=== PATIENT | male | born 1935 | race Hispanic/Latino ===

== ENCOUNTER 2016-10-20 01:54 | Day surgery (SDC) | payer MEDICARE, MEDICAID ==
[~2016-10-20] VITALS: Ht 170.2 cm; Wt 66.0 kg
[~2016-10-20 01:54] MED LIST: AMLO5TAB2 PO; CINA30TA PO; CLOP75TA28 PO; ERGO500050 PO; FAMO20TA4 PO; FURO80TA83 PO; GLPZ5T PO; INSU100C8 SUBQ; INSU100I13 SUBQ; LEVO200T6 PO; LEVO50TA6 PO; METO-274 PO; MTC5T PO; SEVE800T7 PO; VALS320T PO
[2016-10-20 10:10] VITALS: BP 157/49; PULSE 98; RESP 18; O2SAT 99
[2016-10-20 10:11] LABS: BASOPHILS % (AUTO) 1.3 % (0-3); EOSINOPHILS % (AUTO) 6.1 % (0-5); MONOCYTES % (AUTO) 14.7 % (4-12); Mean Corpuscular Hemoglobin 30.4 pg (27.0-35.0); Mean Corpuscular Volume 91.8 fL (81-100); NEUTROPHILS % (AUTO) 48.7 % (40-74); Platelet Count 247 bil/L (150-400)
[2016-10-20] MEDS ORDERED: 0.9% Sodium Chloride 500 ML ONE (10:23)
[2016-10-20] MEDS ORDERED: CeFAZolin 1 Gm/50 mL D5W Duplex Bag IV ONE (10:23)
[2016-10-20] MEDS ORDERED: 0.9% Sodium Chloride 1,000 ML ONE (12:09)
[2016-10-20] MEDS ORDERED: Heparin 1,000 Unit/mL 10 mL Inj ONE ×2 (12:10→12:36)
[2016-10-20] MEDS ORDERED: fentaNYL-PF 50 mCg/mL 2 mL Inj ONE (12:25)
[2016-10-20 13:00] VITALS: BP 185/56; PULSE 68; RESP 18
[2016-10-20 13:15] VITALS: BP 185/56; PULSE 71; RESP 18
[2016-10-20 13:45] VITALS: BP 185/56; PULSE 71; RESP 18
[2016-10-20 14:00] VITALS: BP 186/60; PULSE 98; RESP 18
--- NOTE | 2016-10-20 15:44 | DRSVH ---
PROCEDURE: AV FISTULA INDICATIONS: ESRD COMPARISON: None. Technique: 1. Conscious sedation for 60 minutes. 2. Antegrade access of the venous outflow of the right upper extremity fistula. 3. Balloon angioplasty of a focal high-grade stenosis in the central portion of the venous outflow. 4. Balloon angioplasty of a moderate grade stenosis within the midportion of the venous outflow. 5. Sheath removal hemostasis. The indications, alternatives, benefits, risks, and complications of the procedure were explained to the patient.. Informed written consent was obtained and placed in the chart. The patient was marielos t to the angiography suite, and conscious sedation was administered intravenously by jail staff, while continuous cardiorespiratory monitoring was performed. Maximum sterile barrier technique was employed per standard protocol, including hand hygiene, cap, ma sk, sterile gown and gloves, and 2% chlorhexidine. One percent lidocaine was used to anesthetize the skin over the area of interest. Using a micropuncture kit the right upper extremity venous outflow wa s accessed in antegrade fashion. Fistulogram was performed in substance to the level of the SVC throu gh the micropuncture sheath. An 035 wire and a Kumpe catheter were used a high-grade stenosis within the central portion of the cephalic vein. The micropuncture sheath was exchanged for a short 6 Bengali sheath. Balloon angioplasty was performed with a 6 mm x 40 mm high-pressure balloon at a focal high- grade stenosis within the central portion of the cephalic vein. Completion fistulogram was performed. Next, angioplasty was performed with the 6 mm x 40 mm high-pressure balloon within a moderate grade s tenosis in the midportion of the venous outflow. Completion fistulogram was performed. Reflux fistulo gram of the arteriovenous anastomosis was performed. The sheath was removed, and hemostasis was achie kai. FINDINGS: Initial fistulogram demonstrates a focal high-grade stenosis within the central portion of the cephalic vein at the confluence of the cephalic and axillary veins. Completion fistulogram demon strates moderate resolution of the stenosis with some mild residual stenosis remaining. Initial fistu logram demonstrates a moderate grade stenosis within the midportion of the venous outflow. Completion fistulogram demonstrates resolution of the stenosis. IMPRESSION: 1. Status post balloon angioplasty of a focal high-grade stenosis within the central portion of the v enous outflow. There is partial resolution of the stenosis with some persistent stenosis remaining. I f the patient continues to have high venous pressures are prolonged bleeding, repeat angioplasty with a larger balloon could be considered. 2. Resolution of a focal moderate grade stenosis within the midportion of the venous outflow after ba lloon angioplasty. Dictated by: Madonna Plaza M.D. on 10/20/2016 at 15:39 Approved by: Madonna Plaza M.D. on 10/20/2016 at 15:43
[2016-12-23] MEDS ORDERED: CHOL500050 PO (11:34)
== END 2016-10-20 23:59 | disposition home or self-care (01) ==
LOC: SOUO 01:54
PROVIDERS: ATTEND Radiology Vascular & Interventional Radiology
DX: I87.1 Compression of vein (principal); T82.858A Stenosis of other vascular prosthetic devices, implants and grafts, initial encounter; Y83.2 Surgical operation with anastomosis, bypass or graft as the cause of abnormal reaction of the patient, or of later complication, without mention of misadventure at the time of the procedure; Z99.2 Dependence on renal dialysis; D63.1 Anemia in chronic kidney disease; E03.9 Hypothyroidism, unspecified; E11.22 Type 2 diabetes mellitus with diabetic chronic kidney disease; F03.90 Unspecified dementia, unspecified severity, without behavioral disturbance, psychotic disturbance, mood disturbance, and anxiety
CPT/HCPCS: 36415; 36902; 80048; 85025; 85610; 99152; 99153; C1725; C1769; C1894; J1644; J2250; J3010; J7030; Q9967

== ENCOUNTER 2016-10-29 19:03 | Emergency (ER) | payer MEDICARE, MEDICAID ==
[2016-10-29 19:10] VITALS: BP 116/43; PULSE 77; RESP 19; O2SAT 100
--- NOTE | 2016-10-29 19:27 | ED.REPORT ---
HPI-General Illness Date of Service Oct 29, 2016 ED Provider: Dione Heart MD An 81 year old male with a history of ESRD, type II diabetes, PAD, TIA, fistula repairs, and mild dementia presents to the ED via EMS complaining of altered mental status that began 4 days ago. Patient's daughter began to express concern earlier this evening after recording a BS of 336 and reports that he was diaphoretic during the episode. The diaphoresis has since resolved. He recently had a fistula repaired on 10/20 and daughter reports that the patient often hallucinates after the surgery. Patient also recently had a bladder infection and completed 10 days of Keflex (finished 10/16). Associated symptoms included bladder incontinence and decreased appetite. Patient is dialyzed M/W/ F. Daughter denies fever, cough, headaches, chest pain, SOB or abdominal pain. Nursing Notes Stated Complaint: DECREASED LOC Chief Complaint: Neuro Symptoms/ Deficits Nursing Notes Reviewed: Yes Allergies: Coded Allergies: sodium phosphate (Verified Allergy, Unknown, 05/14/16) PT has ESRD, he cannot have phosphate. Scheduled Amlodipine (Amlodipine) 5 Mg Tablet 10 MG PO QAM Cinacalcet (Sensipar) 30 Mg Tablet 60 MG PO QAM Clopidogrel (Clopidogrel) 75 Mg Tablet 75 MG PO DAILYWL Ergocalciferol (Vitamin D2) (Drisdol) 50,000 Unit Capsule 50,000 UNIT PO Q7D Famotidine (Famotidine) 20 Mg Tablet 20 MG PO QAM Furosemide (Lasix) 80 Mg Tablet 80 MG PO BIDF A.M. and NOON; Hold on dialysis days - MWF Glipizide (Glipizide) 5 Mg Tablet 2.5 MG PO DAILY Insulin Glargine (Lantus U100 Solostar Insulin Pen) 100 Unit/1 Ml Inj 10 UNIT SUBQ HS Levothyroxine (Levothyroxine) 200 Mcg Tablet 200 MCG PO HS 200mcg+50mcg to equal 250mcg total Levothyroxine (Levothyroxine) 50 Mcg Tablet 50 MCG PO HS pt takes 250mcg total, 50mcg+200mcg tab Metoclopramide (Metoclopramide) 5 Mg Tab 5 MG PO QID Metoprolol Succinate ER (Metoprolol Succinate ER) 100 Mg Tab.er.24h 100 MG PO MORNING Sevelamer Carbonate (Renvela) 800 Mg Tablet 2,400 MG PO TIDWM Valsartan (Diovan) 320 Mg Tablet 320 MG PO HS Miscellaneous Medications Insulin Aspart (NovoLOG U100 Insulin Vial) 100 U/Ml U 1 UNIT SUBQ General Time Seen by MD: 19:20 Chief Complaint Altered mental status Hx Obtained From: Daughter Arrived By: Ambulance Sudden in Onset?: No Onset Occurred: 1 - 4 hours ago Symptom Duration: Since onset Associated with: Denies: Abdominal pain, Chest pain, Headache, Shortness of breath Pertinent Negative: Pt denies other symptoms Recent Healthcare: No recent hospitalization, Recent doctor visit Past Medical History Past Medical History Diabetes, on insulin Peripheral artery disease Chronic renal failure on dialysis History of TIA Hypothyroid Past Surgical History AV fistula Smoking History Former Smoker Social History Other Social History: Good social support, Local resident Ambulatory Status Wheelchair Review of Systems Full Review of Systems Constitutional: Denies: Chills, Fever Respiratory: Denies: Non-productive cough, Shortness of breath Cardiovascular: Denies: Chest pain GI: Denies: Abdominal pain, Nausea, Vomiting Male: Reports Incontinence Skin: Reports Diaphoresis Neurologic: Denies: Change LOC (Decreased LOC ) Psychiatric: Reports: Change mental status Complete sys rev & neg: except as marked. Physical Exam Vital Signs Vital Signs Date Time Temp Pulse Resp B/P Pulse Ox O2 Delivery O2 Flow Rate FiO2 10/29/16 21:49 36.7 78 20 180/56 98 Room Air 10/29/16 19:39 36.7 75 18 131/45 97 Room Air 10/29/16 19:10 35.8 77 19 116/43 100 Room Air Initial VS: Reviewed Neck: Supple, Non-tender, Full range of motion General/Constitutional: Awake, Alert Head / Eyes: Atraumatic, Normocephalic Pupils: Positive: Pinpoint Respiratory / Chest: Atraumatic, Breath sounds NL, Breath sounds = bilat Cardiovascular: Heart rate NL, Regular rhythm, Heart sounds NL, No murmurs Abdomen: Atraumatic, Soft Upper Extremities Upper Extremity / MS: Atraumatic, Neurologic intact UPPER EXTREMITITES: Fistula right upper extremity Lower Extremity / Pelvis / MS: Atraumatic, Inspection NL, Neurologic intact, Vascular intact LOWER EXTREMITIES: No lower extremity edema Interpretation & Diagnostics Lab Results Interpretation Result Diagram: 10/29/16192910/29/161929 Test 10/29/16:30 10/29/16 20:49 White Blood Count 9.6th/mm3 (3.8-10.1) Red Blood Count 3.37mil/mm3 (4.40-5.80) Hemoglobin 10.2g/dL (13.8-17.2) Hematocrit 31.2% (41.0-50.0) Mean Corpuscular Volume 92.6fL (81-100) Mean Corpuscular Hemoglobin 30.3pg (27.0-35.0) Mean Corpuscular Hemoglobin Concent 32.7% (32.0-37.0) Red Cell Distribution Width 12.8% (12.3-15.4) Platelet Count 303bil/L (150-400) Neutrophils (%) (Auto) 62.8% (40-74) Lymphocytes (%) (Auto) 21.1% (14-46) Monocytes (%) (Auto) 11.9% (4-12) Eosinophils (%) (Auto) 3.0% (0-5) Basophils (%) (Auto) 0.8% (0-3) Hold Purple Top Tube Received (Received) Prothrombin Time 10.6sec (8.1-12.5) Prothromb Time International Ratio 0.99ratio Hold Blue Top Tube Received (Received) Sodium Level 134mEq/L (134-144) Potassium Level 4.0mEq/L (3.5-5.2) Chloride Level 91mEq/L (97-108) Carbon Dioxide Level 23mmol/L (18-29) Blood Urea Nitrogen 59mg/dL (8-27) Creatinine 6.40mg/dL (0.76-1.27) Estimat Glomerular Filtration Rate 9mL/min (>59) Glucose Level 212mg/dL (60-99) Lactic Acid Level 1.9mmol/L (0.4-2.0) Calcium Level 7.8mg/dL (8.5-10.1) Magnesium Level 2.1mg/dL (1.6-2.6) Total Bilirubin 0.2mg/dL (0.0-1.2) Aspartate Amino Transf (AST/SGOT) 15U/L (0-50) Alanine Aminotransferase (ALT/SGPT) 9U/L (0-44) Alkaline Phosphatase 176U/L (25-160) Troponin T 0.053ug/L (0.0-0.011) Total Protein 6.8g/dL (6.4-8.4) Albumin 3.6g/dL (3.4-5.0) Hold Red Top Tube Received (Received) Hold [place] Top Tube Received (Received) Hold Larios Top Tube Received (Received) Urine Color Yellow (YELLOW) Urine Appearance Hazy (CLEAR,HAZY) Urine pH 7.0 (5.0-8.0) Urine Specific Tyler 1.015 (1.003-1.035) Urine Protein 100mg/dL (NEG,TRACE) Urine Glucose (UA) 500mg/dL (NEGATIVE) Urine Ketones Negativemg/dL (NEGATIVE) Urine Occult Blood Large (NEGATIVE) Urine Nitrite Negative (NEGATIVE) Urine Bilirubin Negative (NEGATIVE) Urine Urobilinogen Normalmg/dL (NORMAL) Urine Leukocyte Esterase Negative (NEGATIVE) Urine RBC >50/hpf (0-2) Urine WBC 0-5/hpf (0-5) Urine Epithelial Cells Few/hpf (NONE-MOD) Urine Crystals None seen (NONE SEEN) Urine Bacteria Few/hpf (NONE-FEW) Urine Hyaline Casts None/lpf (NONE) Urine Granular Casts None seen (NONE SEEN) Urine Waxy Casts None seen (NONE SEEN) Urine Red Blood Cell Casts None seen (NONE SEEN) Urine White Blood Cell Casts None seen (NONE SEEN) Urine Mucus None seen (None Seen) Urine Trichomonas None seen (NONE SEEN) Urine Yeast None (NONE SEEN) Urinalysis Comment Urine Culture Reflexed Not indicated Lab Results Interpretation: Anemia is chronic, elevated troponin is at his baseline Urinalysis shows no indication of infection and will be sent for culture ECG Interpretation ECG Interpretation: Rate 65 Sinus rhythm old inferior infarct Lateral T wave depression - similar to 02/09/16 Time: 20:24 Interpreted by: ED physician X-Ray Chest Interpretation Chest Xray Interpretation: IMPRESSION: No acute cardiopulmonary disease process. Dictated by: Tiki Carr MD, PhD on 10/29/2016 at 20:39 Interpretation / Wet Read by: Interpret - Radiologist Re-Eval/Medical Decision Med Decision/Clinical Course Presents with altered mental status. His daughter, and primary caregiver, notes that he typically has a long time after any procedures and he recently had a fistulogram. He apparently has been exquisitely sensitive to his insulin lately and his daughter has been using less than recommended to avoid hypoglycemia At this point there is no evidence of acute or life-threatening issue. His hypoglycemia has resolved he is awake alert eating. Return him to home and requests that he continue his usual dialysis schedule a follow-up with primary care as needed Patient Status: Condition improved Re-Evaluation/Progress Note: Patient is rechecked. He reports that he is feeling much better. Daughter is informed of his lab results and diagnosis. All of the patient's questions are adressed. He understands and agrees with the treatment plan to discharge. Counseled Regarding: Diagnosis, Lab results, Need for follow-up, When/why to return to ED Discharge & Departure Primary Impression: Hypoglycemia Ruled Out: Sepsis, Myocardial infarction, TIA (transient ischemic attack) Disposition: Home Discharge Condition All VS Reviewed: Yes Condition: Stable Patient Instructions: Diabetic Hypoglycemia (ED) Additional Instructions: Thank you for trusting us with your care this afternoon. Your emergency department evaluation results are reassuring that there is no dangerous cause for concern at this time and your symptoms are likely due to hypoglycemia. Because you have been having problems with eating less and seem to be more sensitve to your insulin, it may make sense to use your insulin only AFTER eating, so you don't end up giving too much. I would much rather see your sugar in the 200 range than the 40 range. Schedule a follow up with Dr Clark if you are not improving. Keep your usual dialysis apt. Please return to the emergency department immediately for any new or worsening conditions including any difficulty breathing, weaknesses, numbness/tingling, fevers, or chest pain. Referrals: Jose L Clark MD (PCP) Scribe Attestation Portions of this note were transcribed by Lauren Reed. I, Dr. Heart personally performed the history, physical exam and medical decision-making; I reviewed and confirmed the accuracy of the information in the transcribed note. Signed by: Mini Bautista, 10/29/16 2200. copies to: Jose L Clark MD; Mirna Tolliver MD, Shawna L MD Oct 29, 2016 19:27 LAUREN REED Oct 29, 2016 19:29
[2016-10-29 19:37] LABS: BASOPHILS % (AUTO) 0.8 % (0-3); MONOCYTES % (AUTO) 11.9 % (4-12); Mean Corpuscular Hemoglobin 30.3 pg (27.0-35.0); Mean Corpuscular Volume 92.6 fL (81-100); NEUTROPHILS % (AUTO) 62.8 % (40-74); Platelet Count 303 bil/L (150-400)
[2016-10-29 19:39] VITALS: BP 131/45; PULSE 75; RESP 18; O2SAT 97
[2016-10-29 19:56] LABS: INR 0.99 ratio
[2016-10-29] MEDS ORDERED: Piperacillin-Tazo 3.375 Gm Inj 3.375 GM in Dextrose 5% Minibag Plus 50 ML IV ONE (20:05)
[2016-10-29 20:13] LABS: Magnesium 2.1 mg/dL (1.6-2.6)
[2016-10-29 20:21] LABS: TROPONIN T 0.053 ug/L (0.0-0.011)
--- NOTE | 2016-10-29 20:41 | DRSVH ---
PROCEDURE: X-RAY CHEST ONE VIEW, PORTABLE ([id number]) INDICATIONS: altered mental status TECHNIQUE: One view of the chest was acquired. COMPARISON: [facility], CR, XR CHEST 2VW, 06/03/2016, 17:13. FINDINGS: Surgical changes and devices: None. Lungs and pleura: No pleural effusions or pneumothorax. Lungs are clear. Mediastinum: Mediastinal contours appear normal. Heart size is normal. Bones and chest wall: No suspicious bony lesions. Overlying soft tissues appear unremarkable. IMPRESSION: No acute cardiopulmonary disease process. Dictated by: Tiik Carr MD, PhD on 10/29/2016 at 20:39 Approved by: Tiki Carr MD, PhD on 10/29/2016 at 20:40
[2016-10-29 21:10] LABS: APPEARANCE,URINE HAZY (CLEAR,HAZY); COLOR,URINE YELLOW (YELLOW); OCCULT BLOOD,URINE LARGE (NEGATIVE); UROBILINOGEN,URINE NORMAL (NORMAL)
[2016-10-29 21:49] VITALS: BP 180/56; PULSE 78; RESP 20; O2SAT 98
[2016-10-29 22:52] VITALS: BP 140/30; PULSE 72; RESP 18; O2SAT 96
[2016-12-23] MEDS ORDERED: CHOL500050 PO (11:34)
== END 2016-10-29 23:30 | disposition home or self-care (01) ==
LOC: EDUNIT# 19:03 → EDBD 19:03 → SED 19:03
DX: E11.649 Type 2 diabetes mellitus with hypoglycemia without coma (principal); E11.22 Type 2 diabetes mellitus with diabetic chronic kidney disease; N18.6 End stage renal disease; Z86.73 Personal history of transient ischemic attack (TIA), and cerebral infarction without residual deficits; Z87.891 Personal history of nicotine dependence; Z87.19 Personal history of other diseases of the digestive system; Z79.4 Long term (current) use of insulin; Z99.2 Dependence on renal dialysis; Z88.8 Allergy status to other drugs, medicaments and biological substances
CPT/HCPCS: 36415; 71010; 80053; 81000; 82948; 83605; 83735; 84484; 85025; 85610; 87040; 93005; 96365; 96375; 99285; J2543

== ENCOUNTER 2016-12-17 10:43 | Day surgery (SDC) | payer MEDICARE, MEDICAID ==
[2016-12-17 10:57] VITALS: BP 107/50; PULSE 69; RESP 16; O2SAT 98
--- NOTE | 2016-12-18 15:29 | DRSVH ---
PROCEDURE: PHYSICIAN CONSULTATION COMPARISON: [facility] Ultrasound, US, US ARTERY LEG DPLX UNI RT, 12/16/2016, 11:56. ID & CHIEF COMPLAINT: Nonhealing wound right lower extremity. HISTORY OF PRESENT ILLNESS: Mr. Tobias is accompanied by family members, and reports (via an interpret er) nonhealing wound involving the right lower extremity. Patient has had extensive bilateral lower e xtremity revascularization performed in 2014, with bilateral superficial femoral artery stent placeme nt. MEDICATIONS: Medication list on file (in PACS documents) and reviewed. FOCUSED PHYSICAL EXAM: Blue toe involving the right lower extremity. No palpable pulses. Right lower extremity Doppler ultrasound demonstrates a high-grade stenosis within the mid superficia l femoral artery. There is possible occlusion of the distal superficial femoral artery. IMPRESSION: The patient needs revascularization of the right lower extremity. Conventional angiograph y and angioplasty and stent placement will be scheduled for the patient. Dictated by: Mumtaz Jimenez M.D. on 12/18/2016 at 15:24 Approved by: Mumtaz Jimenez M.D. on 12/18/2016 at 15:27
[2016-12-23] MEDS ORDERED: CHOL500050 PO (11:34)
== END 2016-12-17 23:59 | disposition home or self-care (01) ==
LOC: SOUO 10:43
PROVIDERS: ATTEND Radiology Diagnostic Radiology
DX: Z71.89 Other specified counseling (principal); Z95.820 Peripheral vascular angioplasty status with implants and grafts; S81.801A Unspecified open wound, right lower leg, initial encounter

== ENCOUNTER 2016-12-24 00:07 | Day surgery (SDC) | payer MEDICARE, MEDICAID ==
[2016-12-24] VITALS (15 sets, daily range): BP systolic 117–158; BP diastolic 44–64; PULSE 66–89; RESP 12–25; O2SAT 94–98
[~2016-12-24] VITALS: Ht 160 cm; Wt 67.0 kg
[~2016-12-24 00:07] MED LIST changes: +CHOL500050 PO; -ERGO500050 PO
--- NOTE | 2016-12-24 07:30 | NUR ---
ADMISSION NOTE MALE PT ADMITTED FOR ARTERIOGRAM. DISCUSSED PLAN OF CARE WITH PT AND FAMILY. SEE ADMIT AND FLOW SHEET
[2016-12-24] MEDS ORDERED: CIPR-198 PO (08:48)
[2016-12-24] MEDS ORDERED: ANTIBIOTIC PO (08:49)
[2016-12-24 09:14] LABS: BASOPHILS % (AUTO) 1.2 % (0-3); EOSINOPHILS % (AUTO) 4.2 % (0-5); MONOCYTES % (AUTO) 13.4 % (4-12); Mean Corpuscular Hemoglobin 30.4 pg (27.0-35.0); Mean Corpuscular Volume 93.2 fL (81-100); NEUTROPHILS % (AUTO) 61.5 % (40-74); Platelet Count 370 bil/L (150-400)
[2016-12-24] MEDS ORDERED: Heparin 10,000 Unit/1,000 mL NS Premix IV ONE (09:14)
[2016-12-24 09:15] LABS: INR 0.97 ratio
[2016-12-24] MEDS ORDERED: Heparin 1,000 Unit/mL 10 mL Inj ONE (09:32)
[2016-12-24] MEDS ORDERED: fentaNYL-PF 50 mCg/mL 2 mL Inj ONE (09:32)
[2016-12-24] MEDS ORDERED: Heparin 5,000 Units/500 mL NS Premix IV ONE (10:59)
[2016-12-24] MEDS ORDERED: Nitroglycerin 2% 1 Gm Ointment TOPICAL ONE (11:29)
[2016-12-24] MEDS ORDERED: hydrALAZINE 20 mg/mL Inj ONE (11:41)
[2016-12-24] MEDS ORDERED: Protamine Sulfate 10 mg/mL 5 mL Inj ONE (12:04)
[2016-12-24] MEDS ORDERED: 0.9% Sodium Chloride 50 ML ONE (12:05)
--- NOTE | 2016-12-24 12:25 | NUR ---
POST PROCEDURE NOTE RETURNED FROM INSURANCE DEFENSE ATTORNEY. SEE FLOW SHEET
--- NOTE | 2016-12-24 14:50 | DRSVH ---
PROCEDURE: 1. Aortogram. 2. Bilateral lower extremity runoff examination. 3. Selective right lower extremity superficial femoral arteriography. 4. Selective right lower extremity popliteal arteriography. 5. Angioplasty of right proximal external iliac artery. 6. Angioplasty of right mid external iliac artery. 7. Angioplasty of right distal external iliac artery. 8. Angioplasty of right above knee popliteal artery. 9. Drug-eluting angioplasty of right above-knee popliteal artery. 10. Angioplasty of right distal superficial femoral artery. 11. Drug-eluting angioplasty of right distal superficial femoral artery. 12. Angioplasty of right mid superficial femoral artery. 13. Drug-eluting angioplasty of mid distal superficial femoral artery. 14. Angioplasty of right proximal superficial femoral artery. 15. Angioplasty of right below knee popliteal artery. 16. Left groin closure device. 17. Conscious sedation x165 minutes. INDICATIONS: Peripheral vascular disease. Nonhealing right lower extremity wound. COMPARISON: [facility], , REVASC FEM/POP (ANGIOPLASTY), 03/04/2015, 10:06. [facility], , ANGIO, LE, UNILATERAL, 03/07/2015, 12:40. [facility] Ultrasound, US, US ARTERY LEG DPLX UNI RT, 12/16/2016, 11:56. [facility], PHYSICIAN CONSULTATION, 2016, 10:46. [facility], ANGIO,EXTREM BILATERAL (PNL), 03/04/2015, 10:06. [facility], XA, ANGIO,EXTREM BILATERAL (PNL), 02/26/2015, 9:00. TECHNIQUE: Informed, written consent from the patient was obtained prior to the procedure. Patient wa s brought to the angiography suite, and conscious sedation was administered intravenously by [facility] staff, while continuous cardiorespiratory monitoring was performed. Maximal sterile barrier t echnique, hand hygiene, skin preparation, and sterile ultrasound technique (if ultrasound was utilize d) was followed. A mask, sterile gown, sterile gloves, a large sterile sheet, hand hygiene, and 2% ch lorhexidine or iodine was utilized for skin antisepsis. The bilateral groins were prepped and draped sterilely, and the skin and subcutaneous tissues overlying the left common femoral artery were infuse d with lidocaine. The left common femoral artery was accessed retrograde with a micropuncture set. A 5 [place] Island[place] sheath was advanced, through which a 5 [place] pigtail catheter was advanced into the periren al abdominal aorta and was injected for AP aortography. Pigtail catheter was withdrawn into the dista l abdominal aorta, and was injected for bilateral oblique pelvic arteriography, as well as bilateral lower extremity runoff evaluation. A 4 [place] Island[place] C2 catheter was then used to advance and advantage Glid ewire into the superficial femoral artery. A 6 [place] Island[place] Ansell sheath was advanced with the tip placed in the right common iliac artery. A 40 mm long balloon was used to angioplasty the proximal external iliac artery to 7 mm diameter. The Ansell sheath was then advanced into the proximal external iliac a rtery. The 40 mm long balloon was then used to angioplasty the mid external iliac artery to 7 mm diam eter. The Ansell sheath was advanced into the proximal superficial femoral artery. A 6 [place] Island[place] Frontru nner device was then used to recannulize the occluded distal superficial femoral and above-knee popli teal arteries, and the advantage Glidewire was advanced into the distal superficial femoral artery, o [place] which a 4 [place] Island[place] catheter was advanced and was for selective below knee popliteal artery arteriog yi. Subsequently, a 15 cm long balloon was used to angioplasty the right above-knee popliteal raegan ry and distal superficial femoral artery to 6 mm diameter. A paclitaxel-eluting balloon was then used to angioplasty the same location. A 4 mm limb was then used to angioplasty the below knee popliteal artery. Subsequently, a 6 cm long balloon was then used to angioplasty the mid superficial femoral ar jennifer to 6 mm diameter, followed by a paclitaxel-eluting angioplasty of the same location. A 6 mm diam eter balloon was then used to angioplasty 2 separate locations within the proximal superficial femora l artery, followed by 7 mm diameter angioplasty of the same locations. Repeat arteriography was perfo rmed. A 7 mm diameter by 40 mm long balloon was then expanded within the distal external iliac artery for 3 minutes, followed by repeat arteriography. Sheath was removed and the left groin was then clos ed with a Starclose device. Oral Plavix therapy was initiated following the procedure. FLUOROSCOPY TIME: 29 minutes FINDINGS: Visualized portions of the abdominal aorta are patent. Left: Mild origin stenosis involves the common iliac artery. Internal iliac artery is occluded. External il iac arteries patent. Common and profunda femoris are mildly diffusely stenotic. There is mild diffuse stenosis involving the superficial femoral, above and below knee popliteal arteries. Anterior tibial artery occludes just distal to its origin. Tibial peroneal trunk is patent. Peroneal artery is paten t to mid calf. Posterior tibial artery is patent to its normal terminus. Right: Common iliac artery is patent. Internal iliac artery dose or to high-grade origin stenosis. External iliac artery demonstrates moderate in-stent stenosis proximally, resolved following 7 mm angioplasty. There is high grade stenosis within the distal external iliac artery, resolved following 7 mm angiop lasty. There is transient flow-limiting dissection within the distal external iliac artery, resolved following extended, 3 minute 7 mm angioplasty. Multifocal high-grade stenoses within the proximal superficial femoral artery are present, resolved f ollowing 7 mm angioplasty. High-grade stenosis within the mid superficial femoral artery is present, resolved following conventional and paclitaxel-eluting angioplasty. There is occlusion of the distal superficial femoral and above-knee popliteal arteries, resolved following 6 mm conventional and drug- eluting angioplasty. There is high-grade stenosis of the below knee popliteal artery, resolved follow ing 4 mm angioplasty. The anterior tibial artery is occluded. There is mild to moderate diffuse steno sis of the tibioperoneal trunk. The posterior tibial artery is patent proximally, in its midportion, and is not well seen distally. The peroneal artery is not well seen. IMPRESSION: 1. Multifocal right external iliac artery stenoses, resolved following 7 mm angioplasty. 2. Transient flow limiting dissection within the right distal external iliac artery, resolved followi ng 7 mm extended angioplasty. 3. Multifocal high-grade stenoses within the proximal right superficial femoral artery, resolved foll owing 7 mm conventional angioplasty. 4. High-grade stenosis within the mid right superficial femoral artery, resolved following 6 mm conve ntional and paclitaxel-eluting angioplasty. 6. Occlusion of the distal superficial femoral and above-knee popliteal arteries, resolved following recannulization and 6 mm conventional and paclitaxel-limiting angioplasty. 7. High-grade stenosis of the below knee popliteal artery, resolved following conventional 7 mm angio plasty. 8. Oral Plavix therapy was continued following the procedure. Patient will be scheduled to return in one month for followup arterial Doppler and outpatient followup visit. Dictated by: Mumtaz Jimenez M.D. on 12/24/2016 at 14:23 Approved by: Mumtaz Jimenez M.D. on 12/24/2016 at 14:48
--- NOTE | 2016-12-24 17:25 | NUR ---
BIANCA Patient care assumed at 1615. Report from Arabella WIN. At 1630 patient recovery complete. No bleeding or hematoma at left groin star close. Daughter at bedside. Discharge instructions reviewed, written information given and questions answered. Home with daughter at 1710.
== END 2016-12-24 23:59 | disposition home or self-care (01) ==
LOC: SOUO 00:07
PROVIDERS: ATTEND Radiology Diagnostic Radiology
DX: I70.235 Atherosclerosis of native arteries of right leg with ulceration of other part of foot (principal); L97.519 Non-pressure chronic ulcer of other part of right foot with unspecified severity; I70.8 Atherosclerosis of other arteries; I70.202 Unspecified atherosclerosis of native arteries of extremities, left leg; E11.42 Type 2 diabetes mellitus with diabetic polyneuropathy; E11.621 Type 2 diabetes mellitus with foot ulcer; E11.22 Type 2 diabetes mellitus with diabetic chronic kidney disease; I12.0 Hypertensive chronic kidney disease with stage 5 chronic kidney disease or end stage renal disease; N18.6 End stage renal disease; Z99.2 Dependence on renal dialysis; E03.9 Hypothyroidism, unspecified; Z79.4 Long term (current) use of insulin; Z89.411 Acquired absence of right great toe; Z79.02 Long term (current) use of antithrombotics/antiplatelets
CPT/HCPCS: 36415; 37220; 37224; 75625; 75716; 80048; 85025; 85610; 99152; 99153; C1725; C1729; C1760; C1769; C2623; J0360; J1644; J2250; J2720; J3010; Q9967

== ENCOUNTER 2017-01-09 15:14 | Inpatient (IN) | payer MEDICARE, MEDICAID ==
[~2017-01-09] VITALS: Ht 162.6 cm; Wt 67.3 kg
[~2017-01-09 15:14] MED LIST changes: +ANTIBIOTIC PO; +CIPR-198 PO; -GLPZ5T PO
[2017-01-09 15:24] VITALS: BP 176/58; PULSE 81; RESP 22; O2SAT 100
[2017-01-09] MEDS ORDERED: INSU100V7 SUBQ ×2 (15:32)
[2017-01-09] MEDS ORDERED: ACET325T51 PO (15:32)
[2017-01-09] MEDS ORDERED: HYDR-4003 PO (15:32)
[2017-01-09] MEDS ORDERED: ERGO2000 PO (15:32)
--- NOTE | 2017-01-09 16:11 | ED.REPORT ---
HPI-GI Bleed Date of Service Jan 09, 2017 ED Provider: Sebastian Gabriel MD Pt is a 81 year old Albanian speaking male with a history of IDDM, hypothyroidism , and end stage renal failure on hemodialysis who was brought to the ED via EMS from [facility] with concerns for stanton blood in his urine. He is currently taking Plavix. Obtaining a history is difficult due to the language barrier and failure of the transportation department supervisor system. Per nurse and EMS, his SOB is baseline and he last received dialysis yesterday. Per his step-daughter her had a STENT placed last month, and a R toe amputation recently as well. She reports that he has not had any other recent medical concerns. His step daughter reports that when he went to the bathroom today, he had a bowel movement and a nurse noticed that there was blood in the toilet. She aids in translation, and he is able to report that he is not experiencing any pain, either in his stomach or when he goes to the bathroom. She denies any history of hematuria in the past. Nursing Notes Stated Complaint: GI BLEED Chief Complaint: Male Abdominal Pain Nursing Notes Reviewed: Yes (FTRANS reconciled, on plavix) Allergies: Coded Allergies: sodium phosphate (Verified Allergy, Unknown, 12/24/16) PT has ESRD, he cannot have phosphate. Scheduled Amlodipine (Amlodipine) 5 Mg Tablet 10 MG PO QAM Cinacalcet (Sensipar) 30 Mg Tablet 60 MG PO QAM Ciprofloxacin (Ciprofloxacin) 500 Mg Tablet 500 MG PO DAILY Clopidogrel (Clopidogrel) 75 Mg Tablet 75 MG PO DAILYWL Ergocalciferol (Vitamin D2) (Vitamin D2) 2,000 Unit Tablet 50,000 UNIT PO DAILY Famotidine (Famotidine) 20 Mg Tablet 20 MG PO QAM Furosemide (Lasix) 80 Mg Tablet 80 MG PO BIDF A.M. and NOON; Hold on dialysis days - MWF Insulin Glargine (Lantus U100 Insulin Vial) 100 Unit/Ml Vial 8 UNIT SUBQ bs<200 Insulin Glargine (Lantus U100 Insulin Vial) 100 Unit/Ml Vial 10 UNIT SUBQ BS > 200 Levothyroxine (Levothyroxine) 200 Mcg Tablet 200 MCG PO HS 200mcg+50mcg to equal 250mcg total Levothyroxine (Levothyroxine) 50 Mcg Tablet 50 MCG PO HS pt takes 250mcg total, 50mcg+200mcg tab Metoclopramide (Metoclopramide) 5 Mg Tab 5 MG PO QID Metoprolol Succinate ER (Metoprolol Succinate ER) 100 Mg Tab.er.24h 100 MG PO MORNING Sevelamer Carbonate (Renvela) 800 Mg Tablet 2,400 MG PO TIDWM Valsartan (Diovan) 320 Mg Tablet 320 MG PO HS Scheduled PRN Acetaminophen (Acetaminophen) 325 Mg Tablet 650 MG PO Q4H PRN PRN For Fever Hydrocodone-Acetaminophen 5-325 mg (Hydrocodone-Acetaminophen 5-325 mg) 1 Each Tablet 1 TABLET PO Q4H PRN PRN For Pain Miscellaneous Medications Insulin Aspart (NovoLOG U100 Insulin Vial) 100 U/Ml U 1 UNIT SUBQ General Time Seen by Provider: 16:20 Chief Complaint Chief Complaint: Other (Urine is stanton blood) Bleeding Severity: Moderate Hx Obtained From: Patient, Daughter, Agricultural Equipment Sales Manager Arrived By: Ambulance Symptom Duration: Since onset Similar Sx Previous: Yes Past Medical History Past Medical History Notes: Boiler Tender: Dr. Tolliver Past Medical History Diabetes, on insulin Peripheral artery disease (on clopidegrel) Chronic renal failure on dialysis History of TIA Hypothyroid Past Surgical History AV fistula Stent/revascularization RLE Transmetatarsal amputation R Foot at [place] 12/2016 Smoking History Former Smoker Social History Other Social History: Good social support, Local resident Ambulatory Status Wheelchair Review of Systems Constitutional: Reports: Weakness - generalized, Denies: Chills, Fever, Malaise Respiratory: Reports: Shortness of breath, Denies: Non-productive cough, Wheezing Cardiovascular: Denies: Chest pain, Syncope GI: Reports: Abdominal pain, Denies: Constipation, Diarrhea, Nausea, Vomiting Hematologic: Reports Bleeding Neurologic: Denies: Focal weakness, Syncope Complete sys rev & neg: except as marked. Physical Exam Initial Vital Signs Vital Signs (First) Date Time Temp Pulse Resp B/P Pulse Ox O2 Delivery O2 Flow Rate FiO2 01/09/17 15:24 36.8 81 22 176/58 100 Room Air 2 Nasal Cannula Initial VS: Reviewed, Vital signs normal ((HTN)) Head / Eyes: Atraumatic, Normocephalic, PERRL ENT: Mucous membranes moist, Conjunctiva normal, No scleral icterus Neck: Supple, Non-tender, Full range of motion Skin: Warm, Dry, No cyanosis Neurologic: Alert, Oriented, Nonfocal General/Constitutional: Awake, Alert Appearance / Presentation: Positive: Uncomfortable Respiratory / Chest: Atraumatic, Breath sounds NL, Breath sounds = bilat, No respiratory distress Cardiovascular: Heart rate NL, Regular rhythm, Heart sounds NL Abdomen: Atraumatic, Soft Bright red blood in urinal Rectum / Perineum: Atraumatic, Blood - occult heme -, No gross blood Lower Extremity / Pelvis / MS: Non-tender Transmetatarsal amputation is clean dry and in tact, no signs of infection Interpretation & Diagnostics Interpretation & Diagnostics: Bladder scan 350 ml prevoid, 250ml Post void residual - > Morillo Lab Results Interpretation Result Diagram: 01/09/17 1643 01/09/17 1643 Test 01/09/17 16:43 01/09/17 17:28 01/09/17 17:29 White Blood Count 18.1th/mm3 (3.8-10.1) Red Blood Count 3.47mil/mm3 (4.40-5.80) Hemoglobin 10.5g/dL (13.8-17.2) Hematocrit 32.2% (41.0-50.0) Mean Corpuscular Volume 92.8fL (81-100) Mean Corpuscular Hemoglobin 30.3pg (27.0-35.0) Mean Corpuscular Hemoglobin Concent 32.6% (32.0-37.0) Red Cell Distribution Width 14.2% (12.3-15.4) Platelet Count 462bil/L (150-400) Neutrophils (%) (Auto) 81.1% (40-74) Lymphocytes (%) (Auto) 7.1% (14-46) Monocytes (%) (Auto) 9.1% (4-12) Eosinophils (%) (Auto) 2.1% (0-5) Basophils (%) (Auto) 0.2% (0-3) Hold Purple Top Tube Received (Received) Hold Blue Top Tube Received (Received) Sodium Level 130mEq/L (134-144) Potassium Level 4.4mEq/L (3.5-5.2) Chloride Level 85mEq/L (97-108) Carbon Dioxide Level 27mmol/L (18-29) Blood Urea Nitrogen 36mg/dL (8-27) Creatinine 4.81mg/dL (0.76-1.27) Estimat Glomerular Filtration Rate 12mL/min (>59) Glucose Level 302mg/dL (60-99) Lactic Acid Level 2.4mmol/L (0.4-2.0) Calcium Level 9.3mg/dL (8.5-10.1) Phosphorus Level 3.6mg/dL (2.5-4.9) Total Bilirubin 0.3mg/dL (0.0-1.2) Aspartate Amino Transf (AST/SGOT) 17U/L (0-50) Alanine Aminotransferase (ALT/SGPT) 10U/L (0-44) Alkaline Phosphatase 156U/L (25-160) Troponin T 0.095ug/L (0.0-0.011) Total Protein 8.0g/dL (6.4-8.4) Albumin 3.7g/dL (3.4-5.0) Procalcitonin 0.39ng/mL (0.00-0.08) Hold Red Top Tube Received (Received) Hold [place] Top Tube Received (Received) Hold Larios Top Tube Received (Received) Hold Urine Received (Received) Urine Color Red (YELLOW) Urine Appearance Turbid (CLEAR,HAZY) Urine pH 8.0 (5.0-8.0) Urine Specific [place] 1.020 (1.003-1.035) Urine Protein 300mg/dL (NEG,TRACE) Urine Glucose (UA) 250mg/dL (NEGATIVE) Urine Ketones Negativemg/dL (NEGATIVE) Urine Occult Blood Large (NEGATIVE) Urine Nitrite Negative (NEGATIVE) Urine Bilirubin Negative (NEGATIVE) Urine Urobilinogen Normalmg/dL (NORMAL) Urine Leukocyte Esterase Trace (NEGATIVE) Urine RBC Packed/hpf (0-2) Urine WBC 11-50/hpf (0-5) Urine Epithelial Cells Occasional/hpf (NONE-MOD) Urine Crystals None seen (NONE SEEN) Urine Bacteria Few/hpf (NONE-FEW) Urine Hyaline Casts None/lpf (NONE) Urine Granular Casts None seen (NONE SEEN) Urine Waxy Casts None seen (NONE SEEN) Urine Red Blood Cell Casts None seen (NONE SEEN) Urine White Blood Cell Casts None seen (NONE SEEN) Urine Mucus None seen (None Seen) Urine Trichomonas None seen (NONE SEEN) Urine Yeast None (NONE SEEN) Urinalysis Comment None Urine Culture Reflexed Indicated Lab Results Interpretation: CBC positive leukocytosis CMP chronic renal failure, potassium adequate, glucose elevated Lactic acid marginally elevated Blood culture is pending UA + wbc, + gross blood ECG Interpretation ECG Interpretation: SR - 84 Long first degree heart block Q waves inferiorly and anteriorly No change from prior Time: 21:15 Interpreted by: ED physician X-Ray Chest Interpretation Chest Xray Interpretation: IMPRESSION: No acute cardiopulmonary disease process. Dictated by: Tiki Carr MD, PhD on 01/09/2017 at 16:55 View: Portable, 1 view Interpretation / Wet Read by: Interpret - Radiologist Re-Eval/Medical Decision Med Decision/Clinical Course This is an 81-year-old male chronic renal failure on dialysis is initially sent in with concern for GI bleed. He had blood in his diaper. He is demented, not able to provide much history and denies any pain or discomfort. He is uncooperative. Complex course, and a recent transmetatarsal amputation of the right foot due to peripheral vascular disease. He is on clopidogrel. Family indicates no previous history of GI bleed. On exam the patient's fatigued, but not toxic. He has an AV fistula in the right arm. His incisions are clean dry and intact without signs of infection the lower extremity. Her when he attempts to urinate, it is gross blood. When I perform a rectal exam is guaiac negative. This strongly indicates the blood in his diaper is from the bladder, and not GI bleed after all. He is hypertensive, with no hemodynamic instability. A bladder scan was performed and he had 350 mL small bladder, he was able urinate, but only 100ml, so a three-way Morillo was placed in case further irrigation was needed, and successful drain the bladder. Urinalysis has blood, but also markers of infection. Additionally he has a high white count, and a marginal lactic acid. The patient is being treated with IV ceftriaxone. Point this patient with a urinary tract infection, hematuria, urinary retention requiring catheter placement, moderate leukocytosis and comorbidities. Therefore admission is warranted. Source of Hx: Old records Re-Evaluation/Progress : Time of Eval: 19:23 Re-Evaluation/Progress Note: Pt is rechecked and informed of the plan to admit him to the hospital at this time. He understands and agrees, all questions are addressed. Consultation #1: Referral / Consult Name: Justus Collins MD Consulted With: Nephrology Call Returned at: 19:21 Hog Operator: Will see patient, Agrees with eval, Agrees with plan Consultation #2: Referral / Consult Name: Galileo Bone MD Consulted With: Urology Call Returned at: 19:21 Hog Operator: Will see patient, Agrees with eval, Agrees with plan Consultation #3: Referral / Consult Name: Arthur Meza MD Consulted With: Hospitalist Call Returned at: 19:32 Hog Operator: Will see patient, Agrees with plan, Accepts admit Differential Diagnosis: Negative: Anal fissures, Angiodysplasia, Bleeding diathesis, Esophageal varices, Foreign body intestine, Foreign body rectum, GI Bleed, Gastroenteritis, Peptic ulcer disease, Perirectal abscess Counseled Regarding: Diagnosis, Lab results, Need for admission Discharge & Departure Impression: Primary Impression: Urinary tract infection Urinary tract infection type: acute cystitis Hematuria presence: with hematuria Qualified Code: N30.01 - Acute cystitis with hematuria Additional Impressions: Urinary retention Gross hematuria Chronic renal failure Chronic kidney disease stage: stage 5 Qualified Code: N18.5 - Chronic kidney disease, stage 5 Disposition: ADMITTED TO HOSPITAL Discharge Condition All VS Reviewed: Yes Condition: Stable Referrals: Jose L Clark MD (PCP) Mini Attestation Portions of this note were transcribed by Nicol Modi.. I, Dr. Gabriel personally performed the history, physical exam and medical decision-making; I reviewed and confirmed the accuracy of the information in the transcribed note. Signed by:Mini Farris, 01/09/2017 19:25 copies to: Jose L Clark MD, Matthew F MD Jan 09, 2017 16:11 JONATAN MODI Jan 09, 2017 16:20
--- NOTE | 2017-01-09 16:57 | DRSVH ---
PROCEDURE: X-RAY CHEST ONE VIEW, PORTABLE ([id number]) INDICATIONS: SHORTNESS OF BREATH TECHNIQUE: One view of the chest was acquired. COMPARISON: [facility], CR, XR CHEST 2VW, 06/03/2016, 17:13. [facility], C R, XR CHEST 1VW (PORTABLE), 10/29/2016, 20:29. FINDINGS: Surgical changes and devices: None. Lungs and pleura: No pleural effusions or pneumothorax. Lungs are clear. Mediastinum: Mediastinal contours appear normal. Heart size is normal. Bones and chest wall: No suspicious bony lesions. Overlying soft tissues appear unremarkable. IMPRESSION: No acute cardiopulmonary disease process. Dictated by: Tiki Carr MD, PhD on 01/09/2017 at 16:55 Approved by: Tiki Carr MD, PhD on 01/09/2017 at 16:56
[2017-01-09 17:15] LABS: BASOPHILS % (AUTO) 0.2 % (0-3); EOSINOPHILS % (AUTO) 2.1 % (0-5); MONOCYTES % (AUTO) 9.1 % (4-12); Mean Corpuscular Hemoglobin 30.3 pg (27.0-35.0); Mean Corpuscular Volume 92.8 fL (81-100); NEUTROPHILS % (AUTO) 81.1 % (40-74); Platelet Count 462 bil/L (150-400)
[2017-01-09] MEDS ORDERED: Lidocaine 2% 6mL Topical Jelly TOPICAL ONE (18:10)
[2017-01-09 18:39] VITALS: BP 169/43; PULSE 89; O2SAT 100
[2017-01-09 18:41] LABS: APPEARANCE,URINE TURBID (CLEAR,HAZY); COLOR,URINE RED (YELLOW)
[2017-01-09 18:42] LABS: OCCULT BLOOD,URINE LARGE (NEGATIVE); UROBILINOGEN,URINE NORMAL (NORMAL)
[2017-01-09] MEDS ORDERED: cefTRIAXone Inj 2,000 MG in Dextrose 5% Minibag Plus 50 ML IV ONE (18:50)
[2017-01-09] MEDS ORDERED: 0.9% Sodium Chloride 1,000 ML IV SCH ×2 (19:25→19:42)
[2017-01-09] MEDS ORDERED: Polyethylene Glycol (PEG) 17 Gm Powder PO PRN (19:45)
[2017-01-09] MEDS ORDERED: Ondansetron 2 mg/mL 2 mL Inj IVPUSH PRN (19:45)
[2017-01-09] MEDS ORDERED: Alum-Mag Hydrox-Simeth 30 mL Suspension PO PRN (19:45)
[2017-01-09 20:30] LABS: Phosphorus 3.6 mg/dL (2.5-4.9)
[2017-01-09 20:50] LABS: TROPONIN T 0.095 ug/L (0.0-0.011)
[2017-01-09 21:03] VITALS: BP 186/58; PULSE 85; RESP 22; O2SAT 100
[2017-01-09 22:01] VITALS: BP 186/58; PULSE 85; RESP 22; O2SAT 100
[2017-01-09 22:06] VITALS: BP 183/73; PULSE 86; RESP 20; O2SAT 100
--- NOTE | 2017-01-09 22:42 | PCM.HPMED ---
Subjective Date of Service Jan 09, 2017 Primary Provider: Admitting Physician: Primary Care Physician: Jose L Clark MD Attending Physician: Admit Status: From the Emergency Department, Full Admit, [facility] Telemetry Chief Complaint: Hematuria at skilled nursing History of Present Illness: Geraldo Tobias is a 81 year old Belarusian speaking male with diabetes insulin requiring, hypothyroidism, and end stage renal failure on hemodialysis who was brought to [facility] emergency department via EMS from [facility] with concerns for stanton blood in his urine. History is difficult and limited due to the language barrier and failure of the groundskeeping maintenance worker system. Per nurse and EMS, his SOB is baseline and he last received dialysis yesterday. His step daughter reports that when he went to the bathroom today, he had a bowel movement and a nurse noticed that there was blood in the toilet. [facility] send him to the ED for concern of GI bleeding but it was noted on the ED that he had dark and bloody urine. Patient had reportedly denies any abdominal pain. There was a possible fever at SNF. He is currently taking Plavix Case discussed with Dr Gabriel, workup showed Sepsis and UTI as well as lactic acidosis. Fluids and antibiotics given and will be admitted Review of Systems: Pertinent positives as noted in HPI. All other systems were reviewed and are negative Allergies Coded Allergies: sodium phosphate (Verified Allergy, Unknown, 12/24/16) PT has ESRD, he cannot have phosphate. Home Medications From [facility], not yet confirmed Geraldo Tobias [id number] 10/05/2016 02:20 PM 08/13 amlodipine 10 mg tablet take 1 tablet by oral route every day Diovan 320 mg Tab take 1 tablet (320MG) by oral route every evening famotidine 20 mg tablet take 1 tablet by oral route every day Flonase Allergy Relief 50 mcg/actuation nasal spray,suspension inhale 2 spray by intranasal route every day in each nostril fluticasone 50 mcg/actuation nasal spray,suspension spray 2 spray by intranasal route every day in each nostril as needed furosemide 80 mg Tab take 1 tablet (80MG) by oral route every morning and noontime Lantus Solostar 100 unit/mL (3 mL) subcutaneous insulin pen inject by subcutaneous route as per insulin protocol levothyroxine 50 mcg tablet take 1 tablet (50MCG) by oral route every day metoclopramide 5 mg Tab take 1 tablet (5MG) by oral route 4 times every day 30 minutes before meals and at bedtime metoprolol succinate ER 100 mg tablet,extended release 24 hr take 1 tablet by oral route every day Novolog inject 5-8 units by subcutaneous route per prescriber's instructions. Insulin dosing requires individualization. Plavix 75 mg tablet take 1 tablet (75MG) by oral route every day Renvela 800 mg Tab take 3 Tablet (2400MG) by oral route 3 times every day with meals Sensipar 30 mg tablet take 1 tablet by oral route every day with food triamcinolone acetonide 0.5 % topical cream apply by topical route 2 times every day a thin layer to the affected area(s) PMH Diabetes, on insulin Peripheral artery disease Endstage Renal disease on dialysis History of TIA Hypothyroid . Surgical History AV fistula recent toe amputation Social History Hx Alcohol Use: No Hx Substance Use: No Hx Tobacco Use: Yes ("every not and then") Smoking Status: Former Smoker Exam Vital Signs Vital Sign - Last Date Time Temp Pulse Resp B/P Pulse Ox O2 Delivery O2 Flow Rate FiO2 01/09/17 18:39 89 169/43 100 Nasal Cannula 2 01/09/17 15:24 36.8 22 Exam General: Alert, Oriented X3, Cooperative, No acute Distress Eyes: PERRLA, Scleral Anicteric Mouth: Mouth Normal, Mucous Membranes Moist/[place] Neck: Supple, no Thyromegaly, trachea central. Chest & Lungs: Clear to auscultation & percussion, No adventitious breath sounds, no crackles, no wheeze Cardiovascular: Normal S1, Normal S2, No Murmurs/Rubs/Gallops, Regular Rate/ Rhythm, (No JVD, no peripheral edema) Pulses: Radial (present and equal), Dorsalis Pedi (present and equal) Abdomen: Soft, Non-tender, Non-distended, Normoactive bowel tones. Musculoskeletal: Unremarkable. Normal range of motion, no swollen or erythematous joints Extremities: No edema, no cyanosis, no clubbing. Skin: No rashes. Warm and dry, no erythematous areas Neurological: Grossly neurologically intact, has generalized weakness, Normal Speech, Sensation Intact Lymphatic: Lymph nodes Cervical and Axillary not palpable. Lab and Diagnostics Labs Laboratory Tests Test 01/09/17 16:43 01/09/17 17:28 01/09/17 17:29 White Blood Count 18.1th/mm3 (3.8-10.1) Red Blood Count 3.47mil/mm3 (4.40-5.80) Hemoglobin 10.5g/dL (13.8-17.2) Hematocrit 32.2% (41.0-50.0) Mean Corpuscular Volume 92.8fL (81-100) Mean Corpuscular Hemoglobin 30.3pg (27.0-35.0) Mean Corpuscular Hemoglobin Concent 32.6% (32.0-37.0) Red Cell Distribution Width 14.2% (12.3-15.4) Platelet Count 462bil/L (150-400) Neutrophils (%) (Auto) 81.1% (40-74) Lymphocytes (%) (Auto) 7.1% (14-46) Monocytes (%) (Auto) 9.1% (4-12) Eosinophils (%) (Auto) 2.1% (0-5) Basophils (%) (Auto) 0.2% (0-3) Hold Purple Top Tube Received (Received) Hold Blue Top Tube Received (Received) Sodium Level 130mEq/L (134-144) Potassium Level 4.4mEq/L (3.5-5.2) Chloride Level 85mEq/L (97-108) Carbon Dioxide Level 27mmol/L (18-29) Blood Urea Nitrogen 36mg/dL (8-27) Creatinine 4.81mg/dL (0.76-1.27) Estimat Glomerular Filtration Rate 12mL/min (>59) Glucose Level 302mg/dL (60-99) Lactic Acid Level 2.4mmol/L (0.4-2.0) Calcium Level 9.3mg/dL (8.5-10.1) Total Bilirubin 0.3mg/dL (0.0-1.2) Aspartate Amino Transf (AST/SGOT) 17U/L (0-50) Alanine Aminotransferase (ALT/SGPT) 10U/L (0-44) Alkaline Phosphatase 156U/L (25-160) Total Protein 8.0g/dL (6.4-8.4) Albumin 3.7g/dL (3.4-5.0) Hold Red Top Tube Received (Received) Hold [place] Top Tube Received (Received) Hold L[place] Top Tube Received (Received) Hold Urine Received (Received) Urine Color Red (YELLOW) Urine Appearance Turbid (CLEAR,HAZY) Urine pH 8.0 (5.0-8.0) Urine Specific [place] 1.020 (1.003-1.035) Urine Protein 300mg/dL (NEG,TRACE) Urine Glucose (UA) 250mg/dL (NEGATIVE) Urine Ketones Negativemg/dL (NEGATIVE) Urine Occult Blood Large (NEGATIVE) Urine Nitrite Negative (NEGATIVE) Urine Bilirubin Negative (NEGATIVE) Urine Urobilinogen Normalmg/dL (NORMAL) Urine Leukocyte Esterase Trace (NEGATIVE) Urine RBC Packed/hpf (0-2) Urine WBC 11-50/hpf (0-5) Urine Epithelial Cells Occasional/hpf (NONE-MOD) Urine Crystals None seen (NONE SEEN) Urine Bacteria Few/hpf (NONE-FEW) Urine Hyaline Casts None/lpf (NONE) Urine Granular Casts None seen (NONE SEEN) Urine Waxy Casts None seen (NONE SEEN) Urine Red Blood Cell Casts None seen (NONE SEEN) Urine White Blood Cell Casts None seen (NONE SEEN) Urine Mucus None seen (None Seen) Urine Trichomonas None seen (NONE SEEN) Urine Yeast None (NONE SEEN) Urinalysis Comment None Urine Culture Reflexed Indicated Microbiology 01/09/17 Urine Culture, Received Pending Result Diagram: 01/09/17 1643 01/09/17 1643 X-Rays, CTs and MRIs X-RAY CHEST ONE VIEW, PORTABLE 01/09 IMPRESSION: No acute cardiopulmonary disease process. Dictated by: Tiki Carr MD, PhD on 01/09/2017 at 16:55 Approved by: Tiki Carr MD, PhD on 01/09/2017 at 16:56 Assessment & Plan Geraldo Tobias is a 81 year old Belarusian speaking male with diabetes insulin requiring, hypothyroidism, and end stage renal failure on hemodialysis who was brought to [facility] emergency department via EMS from [facility] with concerns for Hematuria 1 Severe Sepsis. Present on admission Meeting criteria with Leukocytosis and Fever with Urinary source. organ dysfunction with lactic acidosis - IV fluids resuscitations according to sepsis protocol - early initiation antibiotics - checking lactic acid 2 Urinary tract infection with Hematuria. Present on admission - Ceftriaxone IV for empiric antibiotics 3 Lactic acidosis. 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 - nephrology has been consulted for inpatient dialysis orders 5 Hypertension - continue Losartan 100mg daily, Metoprolol XL 100mg daily and Amlodipine 10mg daily 6 Diabetes mellitus type 2 with peripheral neuropathy, Nephropathy and gastroparesis - medium correction Lispro algorithm - checking A1c - continue Reglan with meals 7 Chronic diastolic congestive heart failure - holding diuretic while we are resuscitating patient - Acetaminophen as needed for mild pain/fever/headache - Bowel regimen as needed - Antiemetic as needed Patient admitted under inpatient status with expected length of stay > 2 midnights for severity of present symptoms, complexities of treatment plan and risk for adverse event . Resuscitation Status: CPR: Attempt Resuscitation Arthur Meza MD Jan 09, 2017 19:50
--- NOTE | 2017-01-09 23:17 | NUR ---
Admission Pt arrived to room 3016 alert and oriented x3 per family. c/o penis discomfort and feeling like he had to void per family. Pt was oriented to room, call light, bed and policies. Pt arrived with eason catheter in place, draining dark pink drainage with minor clots. Pts family left before admission questions could be asked, but family member did confirm Pts med list in [facility] to be up to date.
[2017-01-10] MEDS: Sodium Chloride LOK Flush 10 mL Syringe IVFLUSH SCH ×3 (00:01→16:56)
[2017-01-10] MEDS: Lactated Ringer's 1,000 ML IV SCH ×3 (00:01→08:28)
[2017-01-10 05:04] VITALS: BP 163/69; PULSE 94; RESP 20; O2SAT 99
[2017-01-10 05:45] VITALS: PULSE 84
--- NOTE | 2017-01-10 06:15 | NUR ---
Bladder Irrigation Continuous Bladder irrigation initiated at 0610. Pt tolerating well.
[2017-01-10] MEDS ORDERED: Glucose 40% Oral Gel 15 Gm Tube PO PRN (09:04)
[2017-01-10] MEDS ORDERED: Ergocalciferol (Vit D2) 50,000 Unit Capsule PO SCH (09:30)
[2017-01-10] MEDS ORDERED: AMLO10TA3 PO (09:57)
[2017-01-10] MEDS ORDERED: INSLIS SUBQ (09:57)
[2017-01-10] MEDS ORDERED: HYDR-4003 PO (10:01)
[2017-01-10] MEDS: MeTOProlol XL 50 mg ER24 Tablet PO SCH (10:38)
[2017-01-10 11:00] LABS: BASOPHILS % (AUTO) 0.2 % (0-3); EOSINOPHILS % (AUTO) 0.3 % (0-5); MONOCYTES % (AUTO) 7.5 % (4-12); Mean Corpuscular Hemoglobin 30.1 pg (27.0-35.0); Mean Corpuscular Volume 91.2 fL (81-100); NEUTROPHILS % (AUTO) 86.1 % (40-74); Platelet Count 435 bil/L (150-400)
[2017-01-10] MEDS: Insulin LISPRO 300 Unit/3 mL Inj SUBQ SCH ×3 (11:36→22:00)
[2017-01-10 12:04] LABS: TROPONIN T 0.102 ug/L (0.0-0.011)
--- NOTE | 2017-01-10 12:22 | NUR ---
Bladder irrigation Per Dr Calvin, please place bladder irrigation on hold and irrigate bladder to dislodge any additional small blood clots. Joao Aponte to use at tip of penis for comfrt. Addendum: 01/10/17 at 1317 by GABY EDMONDSON RN CBI placed on hold, bladder irrigated vigorously with 60 ml syringe and sterile NS. Multiple small clots passed through out, Irrigation continued until no additional clots passed, output appears to be clear to the naked eye. Pt tolerated well. Call light in reach, will continue to monitor.
--- NOTE | 2017-01-10 13:56 | NUR ---
Social Work-initial assessment: Data:See initial assessment. Pt is a 81 y/o male who admitted on 01/09/17 for UTI and chronic renal failure per H&P. Pt's insurance is [employer] and PCP is Jose L Clark MD. EMR Reviewed. ISSA met with pt and daughter Dora [phone] at bedside to discuss discharge planning, SW role explained. Pt normally resides at home with daughter and [facility] caregivers. Pt's CM is Sarahi Ga, updated clinicals faxed. Pt has been residing over at [facility] for the last couple weeks post discharge from [place]. Pt goes to dialysis M/W/F. Pt either uses a fww or w.c at baseline and does no drive. Pt has no HH history. Pt has no nursing home care insurance or VA benefits. SW discussed DPOA/ advanced directive, daughter confirms that this has been completed, SW encouraged a copy to be brought in. Daughter would like for pt to return to [facility] at discharge. SW to await MD order for SNF return. SW placed phone number and plan on white board in room. Paperwork in the chart. SW will continue to follow. Assessment:Pt who has been residing at [facility]. Plan:Anticipate pt to discharge back to [facility] when medically stable. SW to await MD order for SNF return. Paperwork in the chart. SW will continue to follow. KATTY Chambers Addendum: 01/10/17 at 1401 by JAROCHO DOUGLAS SS Amended: Links added.
--- NOTE | 2017-01-10 14:08 | NUR ---
MD order received for return to SNF .SW spoke with Cielo Mata at [facility] who confirms they are able to accept pt back when ready with Dr. Lewis to follow, access has been given. Daughter Dora and pt in agreement with plan. KATTY Chambers
[2017-01-10 15:15] VITALS: BP 140/70; O2SAT 95
--- NOTE | 2017-01-10 15:45 | NUR ---
Bladder irrigation CBI in place, 9000 mls in, 77984 mls of very light pink tinged fluid out. No blood clots noted at this time. Pt resting quietly, family at bedside. Will continue to monitor. Addendum: 01/10/17 at 1708 by GABY EDMONDSON RN CBI stopped per MD order, fluids are clear with no signs of clots. Will continue to monitor
--- NOTE | 2017-01-10 16:26 | PCM.PNMED ---
Subjective Date of Service Jan 10, 2017 Subjective Patient without complaints. He does not have any chest pain, no dyspnea, no nausea or vomiting. His urine is flowing slightly pink tinged because of continuous bladder irrigation. Exam Vital Signs Vital Sign - Last Date Time Temp Pulse Resp B/P Pulse Ox O2 Delivery O2 Flow Rate FiO2 01/10/17 15:15 140/70 95 Room Air 01/10/17 05:45 84 01/10/17 05:04 37.1 20 01/09/17 22:01 2 Intake and Output 01/09/17 01/09/17 01/10/17 Cumulative From/Thru 15:00 23:00 07:00 01/09/17 15:24 - 01/10/17 05:04 Intake Total 0 ml 0 ml Output Total 400 ml 400 ml Balance -400 ml -400 ml Intake Oral 0 ml 0 ml Output Urine Total 400 ml 400 ml Bladder Scan Volume Amount 352 mls Exam Fellow early male lying in bed side kind of askew General: Alert, Oriented at baseline according to son who is at bedside, Cooperative, No acute Distress Eyes: Pupils equal, conjunctiva clear, eyes track symmetrically Neck: Supple, no Thyromegaly, trachea central. Chest & Lungs: Normal rate, no evidence of accessory muscle usage or respiratory distress Cardiovascular: Regular Rate/Rhythm, (No JVD, no peripheral edema) Abdomen: flat. Musculoskeletal: Unremarkable. Normal range of motion, no obvious deformities Extremities: No edema, no cyanosis, no clubbing. Skin: No rashes. Warm and dry, no erythematous areas Neurological: Grossly neurologically intact, has generalized weakness, Normal Speech, Psych: Patient is pleasant and appropriate Lab and Diagnostics Result Diagram: 01/10/17 1053 01/10/17 1053 X-Rays, CTs and MRIs X-RAY CHEST ONE VIEW, PORTABLE 01/09 IMPRESSION: No acute cardiopulmonary disease process. Dictated by: Tiki Carr MD, PhD on 01/09/2017 at 16:55 Approved by: Tiki Carr MD, PhD on 01/09/2017 at 16:56 12-lead ECG Rate 95, QTC 458 ms 01/10 personally/concurrently reviewed by Ross 01/10 . Ectopic atrial rhythm . Incomplete left bundle branch block * Consider LVH with secondary repol abnrm . Inferior infarct, old * Consider anterior infarct, age indeterminate . When compared with ECG of 09-Jan-2017 21:15:12, . Unspecified significant change Cardiac Echo Impressions Echocardiogram Report: Sridhar Ibrahim on 02/11/2016 03:21 The left ventricle is normal in size. There is mild concentric left ventricular hypertrophy. The ejection fraction is estimated to be 60-65% which has not changed since prior study. There are no obvious focal wall motion abnormalities noted but poor endocardial definition reduces the sensitivity for the detection of such. The E/A ratio is reversed with an elevated E/E', suggesting impaired early relaxation of the left ventricle with possible increased filling pressures. The right ventricle is normal in size and function. The left atrium is moderately dilated. Right atrial size is normal. There is moderate to severe mitral annular calcification. No significant mitral valve stenosis but there appears to be mild mitral stenosis. There has been no significant change since the previous study. The aortic valve is moderately calcified. There is mild to moderate aortic stenosis. The calculated aortic valve area is 1.5 centimeters squared. The peak aortic velocity is 2.1 m/s cm/sec. The peak aortic velocity on the previous exam was 2.0 m/s cm/sec. AR is not well visualized on color Doppler but pressure half-time indicates that is moderate but visually appears to be mild. The aortic root is normal size. Reading Physician:PM Assessment & Plan 81 year old Iranian speaking male presented 01/09 with UTI/sepsis via EMS from [facility] with concerns for Hematuria 01/10 meaning medically complex patient at high risk for complications first time today. I resumed an insulin regimen for him to up his 3 blood pressure medications, discontinued continuous bladder irrigation discussed the case with urology, we will continue to treat UTI and trend WBCs I am not changing antibiotic as patient does not appear septic and only non-resolving evidences a bump in WBCs from 01/09-01/10. We will continue to monitor. #Severe Sepsis. Present on admission secondary to UTI lactic acidosis resolved, popping fluid resuscitation continuing Rocephin #Leukocytosis-trend. probably related to sepsis/infection although acute sepsis seems resolved. #Urinary tract infection with Hematuria. Present on admission - Ceftriaxone 01/09- no history of drug resistant organisms #Hematuria-thank you Dr. 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 VTE Mechanical Devices: Intermittant Pneumatic CD Resuscitation Status: CPR: Attempt Resuscitation Jack Hawkins MD Jan 10, 2017 16:26
--- NOTE | 2017-01-10 16:47 | CONS ---
[address] [address] CONSULTATION REPORT PATIENT: YANIRA HAYWOOD : 1935 MR#: [id number] ADMIT: 01/09/2017 JOB ID: [id number] DATE OF SERVICE: 01/10/2017 REQUESTING PHYSICIAN: Sebastian Gabriel MD REASONS FOR CONSULTATION: 1. Management of end-stage renal disease. 2. Solar Sales Manager is not available. I have obtained history from the medical record. PRESENT ILLNESS: This is an 81-year-old, -speaking gentleman with significant past medical history of end-stage renal disease, type 2 diabetes, hypertension, peripheral vascular disease, hypothyroid, TIA, who was brought by the EMS to [facility] Emergency Department with a concern for dark blood in the urine. According to the ED note, patient went to the bathroom yesterday, he had a bowel movement. Later on, a nurse noticed that there was blood in the toilet. They believe at that time he might have GI bleed. Hence, he was sent to the emergency department for further investigation. In the ER, apparently he was found to have dark and bloody urine. The initial UA showed packed RBC and 11-50 WBC. The patient had continuous bladder irrigation. He was started on IV Rocephin and fluid hydration. During my visit today, he stated that he is feeling better. Per chart he spiked a temperature last night. T-max was 37.8. His last dialysis was on Wednesday. His current potassium level is 4.9. He has right AV fistula. Renal was consulted to resume dialysis while being hospitalized. PAST MEDICAL HISTORY: 1. Type 2 diabetes complicated by diabetic nephropathy. 2. End-stage renal disease, on hemodialysis every Wednesday, Wednesday, and Wednesday. 3. History of multiple TIAs. 4. Hypothyroid. 5. Peripheral vascular disease. Status post right and left femoral angioplasty in February 2015. 6. Renal osteodystrophy. PAST SURGICAL HISTORY: Status post right AV fistula creation. Partial amputation of right foot. Right and left femoral angioplasty. SOCIAL HISTORY: The patient lives at home with his daughter. Denied current use of alcohol, tobacco, or illicit drugs. FAMILY HISTORY: Noncontributory. REVIEW OF SYSTEMS: Unable to obtain due to language barrier. ALLERGIES: SODIUM PHOSPHATE. MEDICATIONS: Amlodipine, Diovan, Pepcid, Flonase, fluticasone, furosemide, Lantus, levothyroxine, metoclopramide, metoprolol, NovoLog, Plavix, Renvela, Sensipar, triamcinolone topical cream. PHYSICAL EXAMINATION: Vitals: Temperature 37.1, pulse 84, respiratory rate 20, blood pressure 140/70, O2 sat 95% on room air. General appearance: Awake, alert, oriented x3. In no acute distress. HEENT: No pallor, no icteric sclerae. No JVD. No lymphadenopathy. No thyroid enlargement. PERRLA, atraumatic. Moist mucous membranes. Heart: Regular rhythm. Normal S1, S2. No murmur, rubs, or gallops. Lungs: Clear to auscultation bilaterally. No wheezing. No rhonchi. Abdomen: Soft, nontender, nondistended. No hepatosplenomegaly. Active bowel sounds. Extremities: No edema, cyanosis or clubbing of fingers. Right AV fistula with good thrill and bruit. : Continuous bladder irrigation in place. LABORATORY: Sodium 132, potassium 4.9, chloride 89, bicarb 23, BUN 41, creatinine 5.79. Lactic acid 1.6. Calcium 9.2. Troponin 0.102. Procalcitonin 0.39. ASSESSMENT: 1. End-stage renal disease, on hemodialysis every Wednesday, Wednesday, and Wednesday. No indication for urgent dialysis today. 2. Sepsis. 3. Pyuria and gross hematuria. 4. Lactic acidosis. 5. Elevation of serum troponin. 6. Renal osteodystrophy. 7. History of hypertension with hypertensive nephrosclerosis. 8. Type 2 diabetes complicated by diabetic nephropathy, neuropathy, and gastroparesis. 9. Anemia of chronic kidney disease. PLAN: 1. Recommend to resume dialysis tomorrow. 2. Will discontinue IV fluid. 3. Recommend CAT scans of the abdomen and pelvis without contrast for further evaluation for hematuria. 4. Continue IV antibiotics. 5. Pending for finalized culture. Thank you for allowing me to participate in the care of your patient. We will monitor along with you.
--- NOTE | 2017-01-10 17:08 | NUR ---
Off the unit Pt is off the unit for completion of abd CT. No complains of pain, CBI stopped at this time, IV saline locked.
--- NOTE | 2017-01-10 17:34 | DRSVH ---
PROCEDURE: CT KUB ([id number]) INDICATIONS: gross hematuria TECHNIQUE: Noncontrast 5 mm thick sections acquired from the diaphragms to the symphysis. 5 mm thick coronal an d sagittal reformats were then performed. For radiation dose reduction, the following was used: aut omated exposure control, adjustment of mA and/or kV according to patient size. COMPARISON: None. FINDINGS: Image quality: Quality diminished by absence of oral and intravenous contrast. Lung bases: Lung bases are abnormal with bibasilar atelectasis adjacent to small bilateral pleural e ffusions. Mild chronic appearing interstitial prominence, greater on the right than the left. Heart s ize is normal. Urinary system: Both kidneys are mildly diminished in size. No kidney stones. No hydronephrosis or perinephric fat stranding. Both ureters appear non-dilated throughout their expected courses. Blad vanesa wall thickness is normal; no calcified bladder stones. At the mid kidney level bilaterally there are 1.5 cm diameter mildly heterogeneous rounded protrusions from the renal cortex, indistinctly mar ginated at the cortical borders, but potentially cysts or solid lesions. Other solid organs: Liver and spleen are normal in size. Gallbladder has been surgically resected. Pancreas is normal in contours. No adrenal nodules. Peritoneum and bowel: Unenhanced bowel loops demonstrate normal wall thickness and caliber. No free fluid or air. Nodes and vessels: No retroperitoneal or mesenteric adenopathy by size criteria. Aorta and inferior vena cava are normal in caliber. Abdominal wall: No ventral hernias. Pelvis: No free pelvic fluid. No inguinal hernias or adenopathy. The bladder wall appears somewhat thickened. A Morillo catheter drains the bladder lumen. Bones: No suspicious bony lesions. No vertebral body compression fractures. IMPRESSION: Small bilateral pleural effusions, adjacent basilar atelectasis. Asymmetric interstitia l prominence greater on the right than the left a small portion of the lung bases included on this st udy. Morillo catheter drains the bladder lumen. The bladder wall appears somewhat thickened, uncertain etio logy and clinical significance. As discussed above it is possible that there are bilateral solid masses involving the kidneys, at the mid kidney level posterior laterally, but the absence of intravenous contrast disallows accurate ass essment. Followup by elective ultrasound or contrast enhanced CT or MR scanning may be warranted. Dictated by: Hieu Lindsay M.D. on 01/10/2017 at 17:28 Approved by: Hieu Lindsay M.D. on 01/10/2017 at 17:33
[2017-01-10] MEDS ORDERED: cefTRIAXone Inj 2,000 MG in Dextrose 5% Minibag Plus 50 ML IV SCH (20:00)
[2017-01-10 20:30] VITALS: BP 167/71; PULSE 88; RESP 20; O2SAT 96
[2017-01-11] MEDS: Sodium Chloride LOK Flush 10 mL Syringe IVFLUSH SCH ×3 (00:52→16:51)
[2017-01-11 05:49] VITALS: BP 157/64; PULSE 95; RESP 20; O2SAT 95
--- NOTE | 2017-01-11 06:09 | NUR ---
Eason drainage Pts eason catheter has been draining clear, light urine with a pink tinge to it. No observable clots and Pt has no c/o pain or discomfort to his bladder or penis.
[2017-01-11] MEDS: Insulin LISPRO 300 Unit/3 mL Inj SUBQ SCH ×4 (08:00→21:27)
[2017-01-11] MEDS: MeTOProlol XL 50 mg ER24 Tablet PO SCH (08:20)
--- NOTE | 2017-01-11 08:20 | NUR ---
Dialysis/ Pt off unit to dialysis at 0810, report given to Saba. Pt NPO for stress test this afternoon, blood sugar 217. Pt req 2L via NC this AM for comfort, stated he felt "a little short of breath" per dtr at bedside. Rn Ccu in shortly after, discussed plan for the day inc dialysis, stress test, NPO status. Pt agrees with plan. Pt reports that he feels much more comfortable on the 2L. Denies any pain/discomfort. Addendum: 01/11/17 at 1239 by SNEHAL MIRELES RN Pt back on unit at 1235, report rec'd from Saba. Pt denies any pain/discomfort. Blood sugar 135. Pt continues to be NPO for stress test this afternoon.
[2017-01-11 08:24] VITALS: BP 183/61; PULSE 91
[2017-01-11] MEDS ORDERED: Ergocalciferol (Vit D2) 50,000 Unit Capsule PO SCH (08:30)
--- NOTE | 2017-01-11 09:46 | PCM.PNNEPH ---
Subjective Date of Service Jan 11, 2017 Subjective The patient has a history of end-stage renal disease secondary to diabetic and hypertensive renal disease. He is admitted for hematuria. He normally dialyzes on Wednesday and Wednesday and his last dialysis was on Wednesday. Patient denies any pain in either his chest or abdomen. There is no nausea or vomiting or breathing difficulties. A Morillo catheter was placed in his urine appears to be pinkish in color. Exam Vital Signs Vital Sign - Last Date Time Temp Pulse Resp B/P Pulse Ox O2 Delivery O2 Flow Rate FiO2 01/11/17 08:06 Supplement Oxygen 01/11/17 05:49 38.1 95 20 157/64 95 01/09/17 22:01 2 Intake and Output 01/10/17 01/10/17 01/11/17 Cumulative From/Thru 15:00 23:00 07:00 01/09/17 15:24 - 01/11/17 06:41 Intake Total 1565 ml 440 ml 0 ml 2005 ml Output Total 1500 ml 350 ml 2250 ml Balance 1565 ml -1060 ml -350 ml -245 ml Intake Oral 440 ml 0 ml 440 ml IV Total 1565 ml 1565 ml Output Urine Total 1500 ml 350 ml 2250 ml # Bowel Movements 1 0 1 Exam Neck supple without adenopathy, thyromegaly, or jugular venous distention. Lungs are clear to auscultation. Heart is regular rhythmical with a soft systolic murmur. Abdomen is soft without any tenderness rebound guarding masses or hepatosplenomegaly. Extremities do not show any evidence of any clubbing, cyanosis, or edema. Skin turgor is good. Lab and Diagnostics Result Diagram: 01/10/17 1053 01/10/17 1053 X-Rays, CTs and MRIs X-RAY CHEST ONE VIEW, PORTABLE 01/09 IMPRESSION: No acute cardiopulmonary disease process. Dictated by: Tiki Carr MD, PhD on 01/09/2017 at 16:55 Approved by: Tiki Carr MD, PhD on 01/09/2017 at 16:56 12-lead ECG Rate 95, QTC 458 ms 01/10 personally/concurrently reviewed by Ross 01/10 . Ectopic atrial rhythm . Incomplete left bundle branch block * Consider LVH with secondary repol abnrm . Inferior infarct, old * Consider anterior infarct, age indeterminate . When compared with ECG of 09-Jan-2017 21:15:12, . Unspecified significant change Cardiac Echo Impressions Echocardiogram Report: Sridhar Gibbsiseno on 02/11/2016 03:21 The left ventricle is normal in size. There is mild concentric left ventricular hypertrophy. The ejection fraction is estimated to be 60-65% which has not changed since prior study. There are no obvious focal wall motion abnormalities noted but poor endocardial definition reduces the sensitivity for the detection of such. The E/A ratio is reversed with an elevated E/E', suggesting impaired early relaxation of the left ventricle with possible increased filling pressures. The right ventricle is normal in size and function. The left atrium is moderately dilated. Right atrial size is normal. There is moderate to severe mitral annular calcification. No significant mitral valve stenosis but there appears to be mild mitral stenosis. There has been no significant change since the previous study. The aortic valve is moderately calcified. There is mild to moderate aortic stenosis. The calculated aortic valve area is 1.5 centimeters squared. The peak aortic velocity is 2.1 m/s cm/sec. The peak aortic velocity on the previous exam was 2.0 m/s cm/sec. AR is not well visualized on color Doppler but pressure half-time indicates that is moderate but visually appears to be mild. The aortic root is normal size. Reading Physician:PM Plan Impression Impression #1 end-stage renal disease dialysis dependent #2 hematuria acute #3 diabetic renal disease #4 hypertension with hypertensive heart disease and hypertensive nephrosclerosis Recommendations #1 patient is being dialyzed for 3 hours on a standard dialyzer , 400 blood flow, 600 dialysate flow, 3 potassium bath with citrate anticoagulation, and 1-2 L will be removed. #2 would strongly recommend a urology consult for further evaluation of his hematuria. Neal Patton DO Jan 11, 2017 09:46
[2017-01-11 10:23] LABS: BASOPHILS % (AUTO) 0.1 % (0-3); EOSINOPHILS % (AUTO) 0.1 % (0-5); MONOCYTES % (AUTO) 6.9 % (4-12); Mean Corpuscular Volume 91.8 fL (81-100); Platelet Count 387 bil/L (150-400)
--- NOTE | 2017-01-11 12:06 | NUR ---
Dialysis note: 3 1/2 hr tx, net UF 1400. HIPOLITO fistula, 2 -1 5g needles. No heparin used r/t hematuria. Pt slept through tx. NPO for scheduled stress test later today. Tx stable. Clamped x 10 min. Site secured with SS gauze, tape. Pt returned to floor stable. Please see DTR for complete record of VS.
[2017-01-11 12:48] VITALS: BP 182/74; PULSE 95; RESP 20; O2SAT 100
[2017-01-11] MEDS: Vancomycin Dose per Pharmacist XX SCH ×2 (14:55→15:00)
[2017-01-11 14:59] VITALS: BP 161/70; PULSE 93; RESP 16; O2SAT 95
[2017-01-11] MEDS ORDERED: Vancomycin Inj 1,250 MG in 0.9% Sodium Chloride 250 ML IV ONE (15:20)
--- NOTE | 2017-01-11 15:46 | PCM.PHAPRO ---
Progress Hematuria at longterm Patient is an 81 y.o. male receiving vancomycin for sepsis. Concurrent abx include: ZOSYN. WBC count is 34 and the patient is febrile. Patient is 66.6 kg, 64inches tall with a SCr of 3.5 mg/dl. Patient receives HD MWF and is ESRD. Based on patient parameters vancomycin will be dosed at 1250mg and will be dosed subsequently based on levels. Pharmacy will follow daily and adjust as appropriate. Thank you for the consult in the care of this patient. RTM PharmD Steve Glasgow Pharm.D Jan 11, 2017 15:46
--- NOTE | 2017-01-11 16:00 | NUR ---
Stress test/fever Pt febrile, PRN antipyretic effective. Pt sleeping most of this shift, awakens with verbal stimuli. Pt continues to deny any pain/discomfort. On 2L for comfort. Bed in lowest, locked position and call light in reach.
[2017-01-11 16:04] LABS: APPEARANCE,URINE TURBID (CLEAR,HAZY); COLOR,URINE BLOODY (YELLOW); OCCULT BLOOD,URINE LARGE (NEGATIVE); UROBILINOGEN,URINE NORMAL (NORMAL)
--- NOTE | 2017-01-11 16:20 | PCM.PNMED ---
Subjective Date of Service Jan 11, 2017 Subjective Patient's nonverbal. He reportedly wakes up and takes his medications did not for me. No complaints of chest pain, dyspnea, nausea or vomiting however he is on oxygen now due to hypoxemia. Exam Vital Signs Vital Sign - Last Date Time Temp Pulse Resp B/P Pulse Ox O2 Delivery O2 Flow Rate FiO2 01/11/17 14:59 37.7 93 16 161/70 95 01/11/17 12:48 Nasal Cannula 2.00 Intake and Output 01/10/17 01/10/17 01/11/17 Cumulative From/Thru 15:00 23:00 07:00 01/09/17 15:24 - 01/11/17 06:41 Intake Total 1565 ml 440 ml 0 ml 2005 ml Output Total 1500 ml 350 ml 2250 ml Balance 1565 ml -1060 ml -350 ml -245 ml Intake Oral 440 ml 0 ml 440 ml IV Total 1565 ml 1565 ml Output Urine Total 1500 ml 350 ml 2250 ml # Bowel Movements 1 0 1 Exam Gen.- Somnolent, no apparent distress.small frail male lying in bed sleeping Eyes- Eyes close, normal eyelids no drainage ENT- ears normal, nose normal Neck- supple/trach midline CVS- RRR no murmur or gallop Lungs CTA GI- NABS/NT soft Musc- moving 4 no obvious deformity Neuro- cranial nerves II through XII intact to gross examination, nonfocal Skin- warm and dry, no rashes/lesions/wounds noted Psych- sleeping Lab and Diagnostics Result Diagram: 01/11/17 1005 01/11/17 1005 X-Rays, CTs and MRIs X-RAY CHEST ONE VIEW, PORTABLE 01/09 IMPRESSION: No acute cardiopulmonary disease process. Dictated by: Tiki Carr MD, PhD on 01/09/2017 at 16:55 Approved by: Tiki Carr MD, PhD on 01/09/2017 at 16:56 12-lead ECG Rate 95, QTC 458 ms 01/10 personally/concurrently reviewed by Ross 01/10 . Ectopic atrial rhythm . Incomplete left bundle branch block * Consider LVH with secondary repol abnrm . Inferior infarct, old * Consider anterior infarct, age indeterminate . When compared with ECG of 09-Jan-2017 21:15:12, . Unspecified significant change Cardiac Echo Impressions Echocardiogram Report: Sridhar Ibrahim on 02/11/2016 03:21 The left ventricle is normal in size. There is mild concentric left ventricular hypertrophy. The ejection fraction is estimated to be 60-65% which has not changed since prior study. There are no obvious focal wall motion abnormalities noted but poor endocardial definition reduces the sensitivity for the detection of such. The E/A ratio is reversed with an elevated E/E', suggesting impaired early relaxation of the left ventricle with possible increased filling pressures. The right ventricle is normal in size and function. The left atrium is moderately dilated. Right atrial size is normal. There is moderate to severe mitral annular calcification. No significant mitral valve stenosis but there appears to be mild mitral stenosis. There has been no significant change since the previous study. The aortic valve is moderately calcified. There is mild to moderate aortic stenosis. The calculated aortic valve area is 1.5 centimeters squared. The peak aortic velocity is 2.1 m/s cm/sec. The peak aortic velocity on the previous exam was 2.0 m/s cm/sec. AR is not well visualized on color Doppler but pressure half-time indicates that is moderate but visually appears to be mild. The aortic root is normal size. Reading Physician:PM Assessment & Plan 81 year old Welsh speaking male presented 01/09 with UTI/sepsis via EMS from [facility] with concerns for Hematuria 01/10 meaning medically complex patient at high risk for complications first time today. I resumed an insulin regimen for him to up his 3 blood pressure medications, discontinued continuous bladder irrigation discussed the case with urology, we will continue to treat UTI and trend WBCs I am not changing antibiotic as patient does not appear septic and only non-resolving evidences a bump in WBCs from 01/09-01/10. We will continue to monitor. 01/11 patient's hematuria has resolved, his blood pressures going up, he got low-grade fevers and his WBCs are going up and we do not have a source. It seems that his overall functional status has declined. As a result on broadening his antibiotic coverage panculturing him again, and consulting infectious disease.. #Leukocytosis/fever- 2' sepsis/infection although acute sepsis seems resolved.source still somewhat elusive. -WBCs have now gone from 18 6/3, 27 6/4, 34 6/5 -Stop Marli start vancomycin/Zosyn 01/11, repeat urine, CXR, blood cultures01/11 #Acute respiratory failure- patient hypoxic whether this related to somnolence just decrease ventilatory capacity or pneumonia not clear yet. -We will check BNP in the a.m. and d-dimer if this is still worsening patient may need VQ scan. #Severe Sepsis. seems to have resolved but severe leukocytosis persists and is concerning. #Urinary tract infection? with Hematuria. Present on admission - Ceftriaxone 01/09-01/11 no history of drug resistant organism, urine is still growing nothing #Hematuria-thank you Dr. 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 VTE Mechanical Devices: Intermittant Pneumatic CD Resuscitation Status: CPR: Attempt Resuscitation Jack Hawkins MD Jan 11, 2017 16:20
[2017-01-11] MEDS ORDERED: Piperacillin-Tazo 3.375 Gm Inj 3.375 GM in Dextrose 5% Minibag Plus 50 ML IV SCH (16:30)
--- NOTE | 2017-01-11 18:02 | NUR ---
Off unit Pt off unit for xray Addendum: 01/11/17 at 1820 by SNEHAL MIRELES RN Pt back on unit
[2017-01-11] MEDS ORDERED: 0.9% Sodium Chloride 250 ML ONE (18:19)
--- NOTE | 2017-01-11 18:39 | DRSVH ---
PROCEDURE: X-RAY CHEST, TWO VIEWS ([id number]) INDICATIONS: hypoxemia, fevers TECHNIQUE: 2 views of the chest were acquired. COMPARISON: [facility], CR, XR CHEST 1VW (PORTABLE), 01/09/2017, 16:30. FINDINGS: Surgical changes and devices: None. Lungs and pleura: There are increased small bilateral pleural effusions with confluent bibasilar medi al retrocardiac opacities consistent with consolidation, atelectasis, or aspiration. Mediastinum: Mediastinal contours are prominent likely due to rotation and technique. Heart size is at the upper limits of normal. Bones and chest wall: No suspicious bony abnormalities. Soft tissues appear unremarkable. IMPRESSION: 1. Increased small bilateral pleural effusions with bibasilar outlet opacities likely representing c onsolidation/pneumonia or aspiration given clinical history. Dictated by: Grey Barr M.D. on 01/11/2017 at 18:35 Approved by: Grey Barr M.D. on 01/11/2017 at 18:37
[2017-01-11 20:35] VITALS: BP 183/78; PULSE 84; RESP 22; O2SAT 100
[2017-01-11 23:31] VITALS: BP 158/62; PULSE 82; RESP 16; O2SAT 100
--- NOTE | 2017-01-11 23:57 | CONS ---
[address] [address] CONSULTATION REPORT PATIENT: YANIRA HAYWOOD : 1935 MR#: [id number] ADMIT: 01/09/2017 JOB ID: [id number] DATE OF SERVICE: 01/11/[address] Hawkins for this timely consult. REASON FOR CONSULTATION: Profound leukocytosis of unknown etiology. INTERVAL HISTORY: The patient is an unfortunate 81-year-old gentleman well known to me from at least one prior admission. The patient has a wide variety of underlying medical problems, most notably diabetes, hypertension and end-stage renal disease requiring dialysis through a right upper extremity fistula. He has also had a cerebrovascular accident and has very significant peripheral vascular disease. The patient has been treated by our Podiatry service quite extensively for a series of diabetic foot infections. Recently, the patient had very abrupt progression of right forefoot infection, and for that reason, had a stent placed here at [facility] to improve his flow to his distal foot. Unfortunately, sometime after that, in December of this year, he developed a rapidly progressive necrosis of his right foot and toes with spreading erythema up his leg. His daughter took him to [facility] in [place], where she says that they found bleeding and what sounds like gangrene of the toes which had been rapidly developing. When the staff in the [facility] attempted to debride the toes a bit they found an exuberant growth of maggots within the forefoot. This eventually led to his admission, and a couple weeks ago apparently the removal of his right forefoot with a TMA type procedure. During his week or so in [facility] he received aggressive antibiotics and was discharged just five or six days ago from [facility] to a half-way facility for a period of convalescence. While at the half-way facility, it was thought that he had a bloody bowel movement but when he got to the emergency department here it became clear what was actually happening was massive hematuria. He was admitted for the hematuria on January 09, two days ago from the half-way facility. He had only really been at [facility] about three days prior to that. At the time of his admission, it was felt that he had hematuria as a primary issue and was also noted he had a leukocytosis and some lactic acidosis. Fluids were given and antibiotic therapy was initiated. Over his couple days here in the hospital, it appears to the patient and his daughter that he has gotten a little bit better, but his white count has continued to climb and is now greater than 30,000. ID consultation is requested to evaluate this. For his part, the patient says he is not having any significant pain and denies having really anything in the way of symptoms. He states he has no headache, no new visual changes. No sore throat and no significant cough, shortness of breath or chest pain. He has not have any problems with his right upper fistula and has no nausea or vomiting. There was report that he had blood in his stool, but it appears that was inaccurate. He does produce small amounts of urine each day and there has been blood in this and that is a recent and new development. He and his daughter both note that the right forefoot amputation has gone very well and is healing very nicely. He is having no more symptoms there and was even observed trying to walk on it while he was at [facility] before coming here, even though he was advised not to of course. PAST MEDICAL HISTORY: 1. Type 2 diabetes. 2. Severe peripheral neuropathy. 3. Hypertension. 4. End-stage renal disease requiring hemodialysis. 5. Hypothyroidism. 6. Secondary hyperparathyroidism. 7. History of CVA. 8. Peripheral vascular disease. 9. 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 SOCIAL HISTORY: The patient is from and worked as a woods laborer. He is a nonsmoker, nondrinker. FAMILY HISTORY: Negative for TB in first and second-degree relatives. REVIEW OF SYSTEMS: Patient tonight has no headache, no acute visual change, sore throat, cough, shortness of breath, chest pain, nausea, vomiting, or diarrhea. He has had hematuria. He denies pain in his right lower extremity at the site of the TMA. The rest review of systems is negative. PHYSICAL EXAMINATION: Reveals an elderly gentleman in no acute distress. Temp 36.7 now, but he was 38.1 earlier this morning. Pulse 93, respiratory rate 16, blood pressure 161/70, saturating 95% on 2 L. He is a little bit lethargic, but easily arouses and is able to give history. No injuries are noted to the head. The eyes are without conjunctivitis. The oral cavity is unremarkable. No pharyngitis is seen. The neck is reasonably supple. The right upper extremity fistula is with a good thrill and no tenderness. The lungs are relatively clear. A few crackles at the bases. Cardiac tones without notable murmur. The abdomen is soft and nontender throughout. No suprapubic fullness is noted. He does have a Morillo catheter. No inguinal adenopathy is noted. The left foot is free of infection and I carefully inspected it, including the toes. There are peripheral pulses that are diminished. Right foot also has diminished pulses but are present. The TMA incision is healing very well and there is no evidence of breakdown or purulence. Neurologically, the patient is weak but neurologically intact. LABORATORIES: Include white count 18,000 when he came in. It has now doubled to 34,000. Neutrophils 89%. Platelets 387. Sed rate greater than 140. Creatinine 3.5 following today's dialysis. LFTs are normal. Urinalysis with 11-50 white cells. Blood cultures are negative. Blood cultures from the 3rd are negative, but urine culture is growing a small amount of what appears to be an E. coli, and we await susceptibilities. Meanwhile, followup blood cultures and urine done today are negative. X-rays were done on admission here, included chest x-ray which is clear actually, a rare finding. A CT scan of the abdomen shows small pleural effusions with small amounts of atelectasis. Morillo catheter is seen in the bladder and the bladder appears thickened. There are also what appear to be masses involving the kidney, but the radiologists were not sure what that meant given his renal failure. The patient does not have a gallbladder. ANTIBIOTICS: The patient's current antibiotics include Zosyn and he has already received one dose of vancomycin just this afternoon, which will likely leave him with good levels for a while. IMPRESSION: This is a complex case. This patient was just at [facility] less than a week ago where he was undergoing transmetatarsal amputation for a maggot infection of his right forefoot due to devitalized tissue. This was cleaned up nicely and now his foot appears benign. The daughter tells me that there were rumors, but she was not able to know for sure, that he may have had methicillin-resistant Staphylococcus aureus, but she thinks that maybe came from a nasal swab rather than from his foot. One concern I would have here is whether he could have a systemic MRSA infection perhaps arising from his infection in his foot. It is also possible he could have endocarditis or a complicated urinary tract infection. At this point, we are a bit stuck awaiting cultures, but fortunately, the patient does not look toxic and he is well covered on vanc and Zosyn at this point. RECOMMENDATIONS: 1. A nasal MRSA swab should be checked. I suspect this will be positive and we will need to place the patient in isolation given that he apparently was positive just days ago. 2. The structures as seen in the kidneys by the radiologists are nondescript, but certainly one possibility is that these could represent fungus balls in the kidney in this patient who has received heavy antibiotic pressure for many years and is by definition immunosuppressed. Will check fungal blood cultures to see if that might be the case. 3. We will not check a Fungitell as it can be falsely elevated with dialysis as I recall. 4. I would not empirically add antifungal therapy, though the patient is certainly at risk for it and we may need to consider that going forward. Thank you very much for this interesting consult. I will follow along with you.
[2017-01-12] MEDS: Sodium Chloride LOK Flush 10 mL Syringe IVFLUSH SCH ×4 (00:30→23:50)
[2017-01-12 04:45] VITALS: BP 181/68; PULSE 83; RESP 22; O2SAT 100
[2017-01-12] MEDS ORDERED: Vancomycin Serum Trough XX SCH (05:00)
[2017-01-12 06:52] LABS: BASOPHILS % (AUTO) 0.2 % (0-3); EOSINOPHILS % (AUTO) 1.7 % (0-5); MONOCYTES % (AUTO) 8.9 % (4-12); Mean Corpuscular Hemoglobin 29.8 pg (27.0-35.0); Mean Corpuscular Volume 94.4 fL (81-100); NEUTROPHILS % (AUTO) 82.4 % (40-74); Platelet Count 395 bil/L (150-400)
[2017-01-12] MEDS: MeTOProlol XL 50 mg ER24 Tablet PO SCH ×2 (07:54→20:30)
[2017-01-12] MEDS: Insulin LISPRO 300 Unit/3 mL Inj SUBQ SCH ×4 (07:57→23:17)
--- NOTE | 2017-01-12 09:24 | NUR ---
Social Work-readiness for discharge: Data:EMR Reviewed. Pt is on day 3 of hospitalization for UTI per H&P. Pt is not medically stable for discharge anticipate 1-2 more days. Pt came to hospital from [facility] and will return there at discharge. Pt goes to dialysis M/W/F. Pt and daughter agreeable to plan. Paperwork placed in the chart. ISSA snyder continue to follow. Assessment:Pt who comes from [facility]. Plan:Pt to discharge back to [facility] with Dr. Lewis to follow when medically stable. Paperwork placed in the chart. ISSA snyder continue to follow. KATTY Chambers
--- NOTE | 2017-01-12 10:41 | PROG NOTE ---
[address] [address] PROGRESS NOTE PATIENT: YANIRA HAYWOOD : 1935 MR#: [id number] ADMIT: 01/09/2017 JOB ID: [id number] DATE: 01/12/2017 REASON FOR FOLLOWUP: Recent right transmetatarsal amputation for severe infection, MRSA colonization, and complicated urinary tract infection. INTERVAL HISTORY: Overnight, the patient has been relatively stable. No fevers, chills, or sweats. No significant new pulmonary or GI symptoms. No problems with the right TMA. PHYSICAL EXAMINATION: Reveals an afebrile gentleman, who looks more awake and alert than yesterday. He is in no acute distress. Temp 37.8 max, currently pulse 83, respiratory rate 22, blood pressure 181/68. He is saturating well on 1 L. Examination of the mental status reveals it to be completely clear. Lungs are clear. Cardiac tones no change. Abdomen benign. Right TMA looks benign as well. LABORATORIES: Include a white count which has dropped from 34,000 yesterday down to 21 today, neutrophil percentage 82. Creatinine 4.67. LFTs normal. Procalcitonin around 1, but this is a patient in renal failure so I would not check any more procalcitonin. He has modest pyuria, 11-50 white cells. Urine is growing an ESBL E. coli which is sensitive interestingly to doxycycline, but otherwise only susceptible to aminoglycosides and carbapenems. Also note that his MRSA screen is positive. Yesterday's chest x-ray showed possible atelectasis or pneumonia. IMPRESSION: This chronically ill gentleman underwent right transmetatarsal amputation at [facility] because of his severe and devitalizing right forefoot infection. He was treated aggressively there and then discharged [facility] a [facility] facility without additional antibiotics. He subsequently developed what sounds like a gross hematuria which led to his transfer here and readmission. He is found to have very elevated white blood count. We were concerned yesterday that he could have a superinfection of his right foot or perhaps complicated urinary tract infection or even an aspiration pneumonia. Overall it appears this is turning out to be a complicated urinary tract infection presenting with hematuria and profound leukocytosis. He continues to be methicillin resistant Staphylococcus aureus colonized. RECOMMENDATIONS: 1. I note that Dr. Hawkins has already made the astute move and switched this patient from Zosyn to ertapenem which I agree with. 2. Patient will require 10 days or so total course of IV ertapenem with close follow up. 3. Bactroban to the nares should be considered in this patient who is chronically colonized with MRSA and is a dialysis patient and I have made the order for that. 4. ID will continue to follow this patient with you, and I will plan to see him again on January 14.
[2017-01-12] MEDS: Ertapenem Inj 500 MG in 0.9% Sodium Chloride 50 ML IV SCH (11:02)
[2017-01-12] MEDS: Mupirocin 2% 22 Gm Ointment NASAL SCH ×2 (11:05→23:04)
[2017-01-12 11:30] VITALS: BP 168/67; PULSE 76; RESP 16; O2SAT 100
--- NOTE | 2017-01-12 14:35 | PCM.PNNEPH ---
Subjective Date of Service Jan 12, 2017 Subjective Patient is doing better however his blood pressure remains problematic. He denies any chest pain, shortness of breath, cough, wheezing, nausea or vomiting. Exam Vital Signs Vital Sign - Last Date Time Temp Pulse Resp B/P Pulse Ox O2 Delivery O2 Flow Rate FiO2 01/12/17 11:30 36.4 76 16 168/67 100 Nasal Cannula 1.00 Intake and Output 01/11/17 01/11/17 01/12/17 Cumulative From/Thru 15:00 23:00 07:00 01/09/17 15:24 - 01/12/17 06:44 Intake Total 801 ml 225 ml 3031 ml Output Total 1400 ml 100 ml 100 ml 3850 ml Balance -1400 ml 701 ml 125 ml -819 ml Intake Oral 472 ml 100 ml 1012 ml IV Total 329 ml 125 ml 2019 ml Output Urine Total 100 ml 100 ml 2450 ml Ultrafiltrate 1400 ml 1400 ml # Bowel Movements 0 1 Exam Neck is supple without adenopathy, thyromegaly, or jugular venous distention. Lungs were clear to auscultation. Heart is regular and rhythmic the subtle systolic murmur. Abdomen soft without any tenderness rebound guarding masses or hepatosplenomegaly. Lab and Diagnostics Result Diagram: 01/12/17 0635 01/12/17 0635 X-Rays, CTs and MRIs X-RAY CHEST ONE VIEW, PORTABLE 01/09 IMPRESSION: No acute cardiopulmonary disease process. Dictated by: Tiki Carr MD, PhD on 01/09/2017 at 16:55 Approved by: Tiki Carr MD, PhD on 01/09/2017 at 16:56 12-lead ECG Rate 95, QTC 458 ms 01/10 personally/concurrently reviewed by Ross 01/10 . Ectopic atrial rhythm . Incomplete left bundle branch block * Consider LVH with secondary repol abnrm . Inferior infarct, old * Consider anterior infarct, age indeterminate . When compared with ECG of 09-Jan-2017 21:15:12, . Unspecified significant change Cardiac Echo Impressions Echocardiogram Report: Sridhar Ibrahim on 02/11/2016 03:21 The left ventricle is normal in size. There is mild concentric left ventricular hypertrophy. The ejection fraction is estimated to be 60-65% which has not changed since prior study. There are no obvious focal wall motion abnormalities noted but poor endocardial definition reduces the sensitivity for the detection of such. The E/A ratio is reversed with an elevated E/E', suggesting impaired early relaxation of the left ventricle with possible increased filling pressures. The right ventricle is normal in size and function. The left atrium is moderately dilated. Right atrial size is normal. There is moderate to severe mitral annular calcification. No significant mitral valve stenosis but there appears to be mild mitral stenosis. There has been no significant change since the previous study. The aortic valve is moderately calcified. There is mild to moderate aortic stenosis. The calculated aortic valve area is 1.5 centimeters squared. The peak aortic velocity is 2.1 m/s cm/sec. The peak aortic velocity on the previous exam was 2.0 m/s cm/sec. AR is not well visualized on color Doppler but pressure half-time indicates that is moderate but visually appears to be mild. The aortic root is normal size. Reading Physician:PM Plan Impression Impression #1 end-stage renal disease dialysis dependent number to diabetic nephropathy #3 hypertension with hypertensive heart disease and hypertensive nephrosclerosis number for hematuria Recommendations #1 over and stop the metoprolol and start him on labetalol 300 mg twice a day. He is already on maximum dose of losartan 100 mg a day. I will also make arrangements for his dialysis in the morning. Neal Patton DO Jan 12, 2017 14:35
--- NOTE | 2017-01-12 14:41 | PCM.PNMED ---
Subjective Date of Service Jan 12, 2017 Subjective Patient only speaks Nigerian but is awake today and tells me and my limited Nigerian that he feels all right and has no needs. He denies pain, dyspnea, nausea or vomiting. Exam Vital Signs Vital Sign - Last Date Time Temp Pulse Resp B/P Pulse Ox O2 Delivery O2 Flow Rate FiO2 01/12/17 11:30 36.4 76 16 168/67 100 Nasal Cannula 1.00 Intake and Output 01/11/17 01/11/17 01/12/17 Cumulative From/Thru 15:00 23:00 07:00 01/09/17 15:24 - 01/12/17 06:44 Intake Total 801 ml 225 ml 3031 ml Output Total 1400 ml 100 ml 100 ml 3850 ml Balance -1400 ml 701 ml 125 ml -819 ml Intake Oral 472 ml 100 ml 1012 ml IV Total 329 ml 125 ml 2019 ml Output Urine Total 100 ml 100 ml 2450 ml Ultrafiltrate 1400 ml 1400 ml # Bowel Movements 0 1 Exam Gen.- no apparent distress.small frail male lying in bed sleeping. Patient is awake and interactive first time 01/12 Eyes- Eyes close, normal eyelids no drainage ENT- ears normal, nose normal Neck- supple/trach midline CVS- RRR Lungs respirations regular and nonlabored GI- flat Musc- moving 4 no obvious deformity Neuro- cranial nerves II through XII intact to gross examination, nonfocal Skin- warm and dry, no rashes/lesions/wounds noted Psych-pleasant, appears comfortable there is a language barrier though Lab and Diagnostics Result Diagram: 01/12/17 0635 01/12/17 0635 X-Rays, CTs and MRIs X-RAY CHEST, TWO VIEWS : Grey Barr M.D. on 01/11/2017 at 18:35 1. Increased small bilateral pleural effusions with bibasilar outlet opacities likely representing consolidation/pneumonia or aspiration given clinical history. Dictated by: Grey Barr M.D. on 01/11/2017 at 18:35 X-RAY CHEST ONE VIEW, PORTABLE 01/09 IMPRESSION: No acute cardiopulmonary disease process. Dictated by: Tiki Carr MD, PhD on 01/09/2017 at 16:55 Approved by: Tiki Carr MD, PhD on 01/09/2017 at 16:56 12-lead ECG Rate 95, QTC 458 ms 01/10 personally/concurrently reviewed by Ross 01/10 . Ectopic atrial rhythm . Incomplete left bundle branch block * Consider LVH with secondary repol abnrm . Inferior infarct, old * Consider anterior infarct, age indeterminate . When compared with ECG of 09-Jan-2017 21:15:12, . Unspecified significant change Cardiac Echo Impressions Echocardiogram Report: Sridhar Ibrahim on 02/11/2016 03:21 The left ventricle is normal in size. There is mild concentric left ventricular hypertrophy. The ejection fraction is estimated to be 60-65% which has not changed since prior study. There are no obvious focal wall motion abnormalities noted but poor endocardial definition reduces the sensitivity for the detection of such. The E/A ratio is reversed with an elevated E/E', suggesting impaired early relaxation of the left ventricle with possible increased filling pressures. The right ventricle is normal in size and function. The left atrium is moderately dilated. Right atrial size is normal. There is moderate to severe mitral annular calcification. No significant mitral valve stenosis but there appears to be mild mitral stenosis. There has been no significant change since the previous study. The aortic valve is moderately calcified. There is mild to moderate aortic stenosis. The calculated aortic valve area is 1.5 centimeters squared. The peak aortic velocity is 2.1 m/s cm/sec. The peak aortic velocity on the previous exam was 2.0 m/s cm/sec. AR is not well visualized on color Doppler but pressure half-time indicates that is moderate but visually appears to be mild. The aortic root is normal size. Reading Physician:PM Assessment & Plan 81 year old Nigerian speaking male presented 01/09 with UTI/sepsis via EMS from [facility] with concerns for Hematuria 01/10 meaning medically complex patient at high risk for complications first time today. I resumed an insulin regimen for him to up his 3 blood pressure medications, discontinued continuous bladder irrigation discussed the case with urology, we will continue to treat UTI and trend WBCs I am not changing antibiotic as patient does not appear septic and only non-resolving evidences a bump in WBCs from 01/09-01/10. We will continue to monitor. 01/11 patient's hematuria has resolved, his blood pressures going up, he got low-grade fevers and his WBCs are going up and we do not have a source. It seems that his overall functional status has declined. As a result on broadening his antibiotic coverage panculturing him again, and consulting infectious disease. 01/12 patient has pneumonia probably an ESBL UTI. Switched to ertepamem, MRSA positive continue vancomycin. Adding bronchodilators. HTN still present, increasing metoprolol to 75 mg twice a day. Follow-up labs in the a.m. and discuss imaging to workup possible renal mass. Adding prandial insulin as well for elevated blood sugars. Medically complex patient at high risk for complications still. #Urinary tract infection? with Hematuria. Present on admission - Ceftriaxone 01/09-01/11 no history of drug resistant organism, urine is still growing ESBL #Leukocytosis/fever- 2' sepsis/infection ESBL UTI improving 01/12, MRSA swab + 01/11 -WBCs have now gone from 18 01/09, 27 01/10, 34 01/11, 21 01/12 -Stop Rocephin, start vancomycin/Zosyn 01/11, repeat urine, CXR, blood cultures 01/11 #Acute respiratory failure/pneumonia-02 down to 1 L -We will check BNP in the a.m. and d-dimer if this is still worsening patient may need VQ scan. -CXR 01/12 suggestive of aspiration pneumonia will add bronchodilators #Hematuria-thank you Dr. Bone urology for evaluating we are stopping continuous bladder irrigation 01/10 to see that it is resolving. Still some hematuria but largely resolved 01/12 follow-up as outpatient -CT shows potential renal mass recommend further imaging to workup such as MRI, needs to be discussed with nephrology/radiology as patient has renal failure and gadolinium is out of the question. 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 - nephrology has been consulted for inpatient dialysis orders #Hypertension - Resuming Metoprolol XL 100mg daily and Amlodipine 10mg daily, may add back losartan 01/11 if blood pressures continue to be elevated #Diabetes mellitus type 2 with peripheral neuropathy, Nephropathy and gastroparesis , BS 135-269 x24hrs, will add prandial insulin 3 units 01/12 - medium correction Lispro algorithm - A1c 7.1 01/10 - continue Reglan with meals #Chronic diastolic congestive heart failure- holding diuretic - Acetaminophen as needed for mild pain/fever/headache - Bowel regimen as needed - Antiemetic as needed . VTE Mechanical Devices: Intermittant Pneumatic CD Resuscitation Status: CPR: Attempt Resuscitation Jack Hawkins MD Jan 12, 2017 14:41
[2017-01-12 16:47] VITALS: BP 182/69; PULSE 73; RESP 18; O2SAT 100
[2017-01-12] MEDS: Mupirocin 2% 22 Gm Ointment TOPICAL SCH ×2 (16:50→23:05)
--- NOTE | 2017-01-12 18:26 | NUR ---
Activity/BM Pt up to chair at bedside for lunch, requiring 2 person extensive assist for transfer. Reminded prior to transfer to not place any weight on RLE. Pt tolerated activity well, became SOB which resolved with rest. Pt also up to BSC, had a medium, soft BM. Pt denies any pain/discomfort thus far. Morillo patent, minimal sai urine output. Dialysis tomorrow. Bed in lowest, locked position and call light in reach.
[2017-01-12 20:17] VITALS: BP 139/64; PULSE 74; RESP 18; O2SAT 99
--- NOTE | 2017-01-12 20:49 | DRSVH ---
PROCEDURE: US RENAL SONOGRAM INDICATIONS: Evaluate masses noted on CT KUB TECHNIQUE: Real-time scanning was performed of the kidneys and bladder, with image documentation. COMPARISON: [facility], CT, CT KUB, 01/10/2017, 17:14. FINDINGS: Kidneys: Kidneys are normal in size. Right kidney measures 9.1 cm long; left kidney measures 9.7 cm long. Right renal cortical thickness is 1.2 cm; left renal cortical thickness is 1.1 cm. Renal cor tical echotexture is increased echogenicity. No hydronephrosis or nephrolithiasis. In the mid zone of the right kidney, there is a 1.8 x 1.5 x 1.7 cm hypoechoic nodule with mural calcification. In the left inferior pole, there is a 1.5 x 1.3 x 1.3 cm hypoechoic nodule in the posterior lateral cortex. Both nodules are sub-optimally visualized. Bladder: There is a Morillo catheter in bladder. Bladder is not well seen. Miscellaneous: No free pelvic fluid. IMPRESSION: 1. Two small hypoechoic nodules in kidneys, one on each side. Both nodules are suboptimally visualize d, therefore, cannot be certain to be cystic. Followup options are sequential ultrasound versus MRI. Dictated by: Jed Cardenas M.D. on 01/12/2017 at 20:40 Approved by: Jed Cardenas M.D. on 01/12/2017 at 20:48
--- NOTE | 2017-01-13 05:45 | NUR ---
Metoprolol PM dose hold BP139/64 at evening, 2 beta-blockers (metoprolol and Labetalol) orders both active, metoprolol should be stopped per nephrology Neal Patton note, night hospitalist Derrick consulted: Metoprolol held. Will give report to day shift RN to further clarify with day hospitalist.
--- NOTE | 2017-01-13 05:52 | NUR ---
Uneventful Pt alert and orientedx3, denies any pain/N/V/Fever/chills. Some SOB with activities, no acute distress. VSS,afebrile. Oligouria,urine output around 50ml/12night, ruby urine in Morillo, bladder scan 5ml. Dialysis scheduled today 01/13/2017. Japanese speaking pt, Roxane Wheeler, [employer] TEACHER speaking fluent Japanese, help with communication.
[2017-01-13 05:54] VITALS: BP 155/56; PULSE 82; RESP 18; O2SAT 98
[2017-01-13 06:27] LABS: BASOPHILS % (AUTO) 0.3 % (0-3); EOSINOPHILS % (AUTO) 1.7 % (0-5); MONOCYTES % (AUTO) 8.4 % (4-12); Mean Corpuscular Hemoglobin 29.9 pg (27.0-35.0); Mean Corpuscular Volume 93.7 fL (81-100); NEUTROPHILS % (AUTO) 77.9 % (40-74); Platelet Count 388 bil/L (150-400)
[2017-01-13] MEDS: MeTOProlol XL 50 mg ER24 Tablet PO SCH (07:49)
[2017-01-13] MEDS: Mupirocin 2% 22 Gm Ointment NASAL SCH ×3 (08:08→21:06)
[2017-01-13] MEDS: Insulin LISPRO 300 Unit/3 mL Inj SUBQ SCH ×4 (08:21→21:07)
--- NOTE | 2017-01-13 08:43 | NUR ---
Dialysis transfer Patient transferred into room 244. Report received from Cary Rosales. crime prevention worker at bedside.
--- NOTE | 2017-01-13 12:34 | NUR ---
Dialysis note 3.5 hr HD tx 2000ml net UF removed. 2 15 g needles to CEM fistula. QB 500 VSS thru tx. See DTR for complete vitals. Pt rested comfortably thru tx without complaints Appears SOB when flat, c/o slight dizziness at end of tx with 5 mins left and tx ended Report given and pt returned to floor stable.
--- NOTE | 2017-01-13 13:36 | PROG NOTE ---
[address] [address] PROGRESS NOTE PATIENT: YANIRA HAYWOOD : 1935 MR#: [id number] ADMIT: 01/09/2017 JOB ID: [id number] DATE: 01/13/2017 INFECTIOUS DISEASE FOLLOW UP NOTE: REASON FOR FOLLOWUP: Complicated ESBL urinary tract infection in a dialysis patient. INTERVAL HISTORY: The patient is seen today on dialysis. He reports no fevers, chills. He does note he is a bit short of breath and has an occasional dry cough. No abdominal pain. PHYSICAL EXAMINATION: Reveals a comfortable gentleman. Temperature 37.1, pulse 82, respiratory rate 18, blood pressure 155/56. He is in no acute distress. Mental status is clear. Lungs relatively clear though he does seem to be mildly tachypneic during dialysis. Abdomen benign. His right TMA site is very well healed. LABORATORIES: Include a white count which has dropped from 34,000 to 13,000 since we started ertapenem for his ESBL E coli UTI. His creatinine is 6.14 but, of course, he is on dialysis. BNP is impressive, over 70,000. Micro studies include ESBL growing from two urine cultures and MRSA positive in the nares. The ESBL is sensitive to tetracycline interestingly. IMPRESSION: This is a complicated case of a gentleman with a recent severe infection of his right forefoot which required TMA recently at [facility]. He was then sent to a jail and subsequently transferred here because of hematuria and was found to have a profoundly elevated white count of 35,000. There is no evidence that that TMA is infected and I see no evidence of additional MRSA infection. What this does appear to be is a complicated ESBL E coli urinary tract infection. RECOMMENDATIONS: 1. Will continue with ertapenem. 2. I would give ertapenem IV here in the hospital until his white count is normal and then I would switch him to oral doxycycline. Doxycycline is a drug which is being used with increasing frequency with the ESBL E coli urinary tract infections. Though it is probably inadequate if someone is bacteremic, I think it is a reasonable agent once the infection has started to come under control for a complicated urinary tract infection such as this. I would not give the patient any sort of central access such as a PICC or a midline catheter given that we will probably only need to give IV antibiotics for a couple more days.
[2017-01-13] MEDS ORDERED: Darbepoetin Alfa (ESRD) 60 mCg/0.3 mL Inj SUBQ ONE (14:10)
[2017-01-13 14:11] VITALS: BP 153/68; PULSE 85; RESP 18; O2SAT 95
[2017-01-13] MEDS: Ertapenem Inj 500 MG in 0.9% Sodium Chloride 50 ML IV SCH (14:11)
[2017-01-13] MEDS: Sodium Chloride LOK Flush 10 mL Syringe IVFLUSH SCH ×2 (14:12→16:30)
--- NOTE | 2017-01-13 14:18 | PCM.PNNEPH ---
Subjective Date of Service Jan 13, 2017 Subjective Patient offers no new complaints. He denies any headache, chest pain, or difficulty with nausea or vomiting. His appetite is 5.0. Exam Vital Signs Vital Sign - Last Date Time Temp Pulse Resp B/P Pulse Ox O2 Delivery O2 Flow Rate FiO2 01/13/17 14:11 36.6 85 18 153/68 95 Nasal Cannula 1.00 Intake and Output 01/12/17 01/12/17 01/13/17 Cumulative From/Thru 15:00 23:00 07:00 01/09/17 15:24 - 01/13/17 05:55 Intake Total 600 ml 200 ml 3831 ml Output Total 0 ml 50 ml 3900 ml Balance 600 ml 150 ml -69 ml Intake Oral 600 ml 200 ml 1812 ml IV Total 2019 ml Output Urine Total 0 ml 50 ml 2500 ml Ultrafiltrate 1400 ml # Bowel Movements 1 Exam HEENT examination is remarkable for pale sclera. Neck is supple without adenopathy thyromegaly or jugular venous distention. Lungs are clear to auscultation. Heart was regular and rhythmical with a soft systolic murmur. Abdomen is soft without any tenderness rebound guarding masses or hepatosplenomegaly. Extremities do not show any evidence of any clubbing, cyanosis, or edema. Lab and Diagnostics Result Diagram: 01/13/17 0550 01/13/17 0550 X-Rays, CTs and MRIs X-RAY CHEST, TWO VIEWS : Grey Barr M.D. on 01/11/2017 at 18:35 1. Increased small bilateral pleural effusions with bibasilar outlet opacities likely representing consolidation/pneumonia or aspiration given clinical history. Dictated by: Grey Barr M.D. on 01/11/2017 at 18:35 X-RAY CHEST ONE VIEW, PORTABLE 01/09 IMPRESSION: No acute cardiopulmonary disease process. Dictated by: Tiki Carr MD, PhD on 01/09/2017 at 16:55 Approved by: Tiki Carr MD, PhD on 01/09/2017 at 16:56 12-lead ECG Rate 95, QTC 458 ms 01/10 personally/concurrently reviewed by Ross 01/10 . Ectopic atrial rhythm . Incomplete left bundle branch block * Consider LVH with secondary repol abnrm . Inferior infarct, old * Consider anterior infarct, age indeterminate . When compared with ECG of 09-Jan-2017 21:15:12, . Unspecified significant change Cardiac Echo Impressions Echocardiogram Report: Sridhar Gibbsiseno on 02/11/2016 03:21 The left ventricle is normal in size. There is mild concentric left ventricular hypertrophy. The ejection fraction is estimated to be 60-65% which has not changed since prior study. There are no obvious focal wall motion abnormalities noted but poor endocardial definition reduces the sensitivity for the detection of such. The E/A ratio is reversed with an elevated E/E', suggesting impaired early relaxation of the left ventricle with possible increased filling pressures. The right ventricle is normal in size and function. The left atrium is moderately dilated. Right atrial size is normal. There is moderate to severe mitral annular calcification. No significant mitral valve stenosis but there appears to be mild mitral stenosis. There has been no significant change since the previous study. The aortic valve is moderately calcified. There is mild to moderate aortic stenosis. The calculated aortic valve area is 1.5 centimeters squared. The peak aortic velocity is 2.1 m/s cm/sec. The peak aortic velocity on the previous exam was 2.0 m/s cm/sec. AR is not well visualized on color Doppler but pressure half-time indicates that is moderate but visually appears to be mild. The aortic root is normal size. Reading Physician:PM Plan Impression Impression #1 end-stage renal disease dialysis dependent #2 hypertension with hypertensive heart disease and hypertensive nephrosclerosis #3 anemia secondary to end-stage renal disease. Recommendations #1 the patient is dialyzed for 3-1/2 hours on a standard dialyzer, 3 potassium bath, 400 blood flow and 600 dialysate flow, 1000 units of heparin bolus and 500 per hour and will try to take 2 L of fluid off. I will also go ahead and give him 60 mg of Aranesp. Neal Patton DO Jan 13, 2017 14:18
--- NOTE | 2017-01-13 15:18 | NUR ---
Social Work-readiness for discharge: Data:EMR Reviewed. Pt is on day 4 of hospitalization for UTI and chronic renal failure per H&P. Pt is not medically stable anticipate 1-2. SW updated in morning rounds that pt will likely need 10 days of IV ertapeum once a day. ISSA spoke with Lindsey at [facility] who confirms that they are able to accept pt back, but would like SW to discuss with MD regarding pt getting ABX during dialysis. ISSA spoke with ID MD regarding this, he states he will look into this and let SW know. SW to update [facility] once decision has been made. Paperwork in the chart. SW Will continue to follow. Assessment:Pt who has been at [facility]. Plan:Pt to discharge to [facility] when medically stable.ID to determine if pt will get abx through dialysis or need them through a PICC Line. Once this is known, SW to update [facility].Paperwork in the chart. SW Will continue to follow. KATTY Chambers
--- NOTE | 2017-01-13 17:14 | PCM.PNMED ---
Subjective Date of Service Jan 13, 2017 Subjective Patient without any complaints of chest pain, dyspnea, nausea and vomiting. I asked him if there is anything I can do for him he chokes and says I can send him home. This is via a driver license reviewing officer who accompanied me into the room. Exam Vital Signs Vital Sign - Last Date Time Temp Pulse Resp B/P Pulse Ox O2 Delivery O2 Flow Rate FiO2 01/13/17 14:11 36.6 85 18 153/68 95 Nasal Cannula 1.00 Intake and Output 01/12/17 01/12/17 01/13/17 Cumulative From/Thru 15:00 23:00 07:00 01/09/17 15:24 - 01/13/17 05:55 Intake Total 600 ml 200 ml 3831 ml Output Total 0 ml 50 ml 3900 ml Balance 600 ml 150 ml -69 ml Intake Oral 600 ml 200 ml 1812 ml IV Total 2019 ml Output Urine Total 0 ml 50 ml 2500 ml Ultrafiltrate 1400 ml # Bowel Movements 1 Exam Gen.- no apparent distress.small frail male Patient is awake and interactive Eyes- Eyes open, conjunctiva clear, no drainage ENT- ears normal, nose normal Neck- supple/trach midline CVS- RRR Lungs respirations regular and nonlabored GI- flat Musc- moving 4 no obvious deformity Neuro- cranial nerves II through XII intact to gross examination, nonfocal Skin- warm and dry, no rashes/lesions/wounds noted Psych-pleasant, appropriate Lab and Diagnostics Result Diagram: 01/13/17 0550 01/13/17 0550 Microbiology Urine positive for ESBL 01/09 and 01/11, MRSA swab +01/11 , Blood cultures -01/09, 01/11 X-Rays, CTs and MRIs X-RAY CHEST, TWO VIEWS : Grey Barr M.D. on 01/11/2017 at 18:35 1. Increased small bilateral pleural effusions with bibasilar outlet opacities likely representing consolidation/pneumonia or aspiration given clinical history. Dictated by: Grey Barr M.D. on 01/11/2017 at 18:35 X-RAY CHEST ONE VIEW, PORTABLE 01/09 IMPRESSION: No acute cardiopulmonary disease process. Dictated by: Tiki Carr MD, PhD on 01/09/2017 at 16:55 Approved by: Tiki Carr MD, PhD on 01/09/2017 at 16:56 12-lead ECG Rate 95, QTC 458 ms 01/10 personally/concurrently reviewed by Ross 01/10 . Ectopic atrial rhythm . Incomplete left bundle branch block * Consider LVH with secondary repol abnrm . Inferior infarct, old * Consider anterior infarct, age indeterminate . When compared with ECG of 09-Jan-2017 21:15:12, . Unspecified significant change Cardiac Echo Impressions Echocardiogram Report: Sridhar Ibrahim on 02/11/2016 03:21 The left ventricle is normal in size. There is mild concentric left ventricular hypertrophy. The ejection fraction is estimated to be 60-65% which has not changed since prior study. There are no obvious focal wall motion abnormalities noted but poor endocardial definition reduces the sensitivity for the detection of such. The E/A ratio is reversed with an elevated E/E', suggesting impaired early relaxation of the left ventricle with possible increased filling pressures. The right ventricle is normal in size and function. The left atrium is moderately dilated. Right atrial size is normal. There is moderate to severe mitral annular calcification. No significant mitral valve stenosis but there appears to be mild mitral stenosis. There has been no significant change since the previous study. The aortic valve is moderately calcified. There is mild to moderate aortic stenosis. The calculated aortic valve area is 1.5 centimeters squared. The peak aortic velocity is 2.1 m/s cm/sec. The peak aortic velocity on the previous exam was 2.0 m/s cm/sec. AR is not well visualized on color Doppler but pressure half-time indicates that is moderate but visually appears to be mild. The aortic root is normal size. Reading Physician:PM Additional Diagnostics US RENAL SONOGRAM: Jed Cardenas M.D. on 01/12/2017 at 20:40 Evaluate masses noted on CT KUB 1. Two small hypoechoic nodules in kidneys, one on each side. Both nodules are suboptimally visualized, therefore, cannot be certain to be cystic. Followup options are sequential ultrasound versus MRI. Dictated by: Jed Cardenas M.D. on 01/12/2017 at 20:40 Assessment & Plan 81 year old Luxembourgish speaking male presented 01/09 with UTI/sepsis via EMS from [facility] with concerns for Hematuria 01/10 meaning medically complex patient at high risk for complications first time today. I resumed an insulin regimen for him to up his 3 blood pressure medications, discontinued continuous bladder irrigation discussed the case with urology, we will continue to treat UTI and trend WBCs I am not changing antibiotic as patient does not appear septic and only non-resolving evidences a bump in WBCs from 01/09-01/10. We will continue to monitor. 01/11 patient's hematuria has resolved, his blood pressures going up, he got low-grade fevers and his WBCs are going up and we do not have a source. It seems that his overall functional status has declined. As a result on broadening his antibiotic coverage panculturing him again, consult ID. 01/12 patient has pneumonia probably an ESBL UTI. Switched to ertepamem, MRSA positive continue vancomycin. Adding bronchodilators. HTN still present, increasing metoprolol to 75 mg twice a day. Follow-up labs in the a.m. and discuss imaging to workup possible renal mass. Adding prandial insulin as well for elevated blood sugars. Medically complex patient at high risk for complications still. 01/13 patient went to dialysis and is doing great. He is off oxygen, SBP and 150s with regimen of losartan 100mg daily/amlodipine 10 mg daily/labetalol 400 mg 2x/day. He wants to go home but cannot ambulate. I am getting physical therapy and ordering social work to evaluate what his needs would be to see if going home as a possibility. Otherwise he is medically stable and ready to return back to SNF 01/14. #Hypertension- labetolol 400mg bid, Amlodipine 10mg daily, losartan 100mg 01/13 still not controlled, further adjust her nephrology please. #DM2/hyperglycemia , prandial insulin 3 units (didn't happen)01/12, adding lantus 8U hs 01/13 - medium correction Lispro algorithm - A1c 7.1 01/10 - continue Reglan with meals #Anemia- ESRD check anemia panel 01/14 in a.m., got dose of Aranesp in dialysis 01/13 #ESBL, UTI Hematuria. Present on admission - Ceftriaxone 01/09-01/11 no history of drug resistant organism, urine is still growing ESBL 01/09 and 01/11 -Ertepamem 01/12-till WBCs normalized per ID then PO doxy #Leukocytosis/fever- 2' sepsis/infection ESBL UTI improving 01/12, MRSA swab + 01/11 -WBCs have now gone from 18 /, 27 01/10, 34 /, 21 01/12 -Stop Rocephin, start vancomycin/Zosyn 01/11-stop 01/12, repeat urine, CXR, blood cultures 01/11, Ertapemem 01/12-?? Normalized WBCs #Acute respiratory failure/pneumonia-resolved 01/13 -We will check BNP in the a.m. and d-dimer if this is still worsening patient may need VQ scan. -CXR 01/12 suggestive of aspiration pneumonia will add bronchodilators 01/12 #Hematuria-thank you Dr. Bone urology for evaluating we are stopping continuous bladder irrigation 01/10 to see that it is resolving. Still some hematuria but largely resolved 01/12 follow-up as outpatient -CT shows potential renal mass recommend further imaging to workup such as MRI, needs to be discussed with nephrology/radiology as patient has renal failure and gadolinium is out of the question. 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 VTE Mechanical Devices: Intermittant Pneumatic CD Resuscitation Status: CPR: Attempt Resuscitation Jack Hawkins MD Jan 13, 2017 17:14
--- NOTE | 2017-01-13 18:27 | NUR ---
Morillo D/C'd Hematuria and ESBL infection present on admission and 3 way Morillo placed at that time. No current irrigation or clots present. Morillo d/c per provider order. Minimal urine produced d/t hemodialysis. Has not voided post removal but is comfortable at this time with scheduled IV antibiotics.
[2017-01-13 20:22] VITALS: BP 155/63; PULSE 82; RESP 16; O2SAT 97
[2017-01-13] MEDS: Insulin GLARgine 100 Unit/mL Syringe SUBQ SCH (21:07)
[2017-01-14] MEDS: Sodium Chloride LOK Flush 10 mL Syringe IVFLUSH SCH ×3 (01:31→17:35)
[2017-01-14 06:07] VITALS: BP 164/68; PULSE 81; RESP 16; O2SAT 96
[2017-01-14 06:07] LABS: BASOPHILS % (AUTO) 0.6 % (0-3); EOSINOPHILS % (AUTO) 4.9 % (0-5); Mean Corpuscular Hemoglobin 29.7 pg (27.0-35.0); Mean Corpuscular Volume 94.3 fL (81-100); NEUTROPHILS % (AUTO) 60.1 % (40-74); Platelet Count 428 bil/L (150-400)
--- NOTE | 2017-01-14 06:27 | NUR ---
Stable overnight Pt denies any pain/N/V/SOB/cough/Fever/chills. BP up to 164/68 this am, asymptomatic, morning BP meds scheduled. Minimal urine output, ESRD dialysis pt. q2h turn performed. American speaking pt, video hydro mechanic Linda help with communication.
[2017-01-14 06:37] LABS: Unsaturated Iron Binding 119.4 ug/dL
[2017-01-14] MEDS: Insulin LISPRO 300 Unit/3 mL Inj SUBQ SCH ×4 (08:00→21:01)
[2017-01-14] MEDS: Mupirocin 2% 22 Gm Ointment NASAL SCH ×2 (09:09→21:08)
[2017-01-14] MEDS: Ertapenem Inj 500 MG in 0.9% Sodium Chloride 50 ML IV SCH (11:00)
--- NOTE | 2017-01-14 11:30 | PROG NOTE ---
[address] [address] PROGRESS NOTE PATIENT: YANIRA HAYWOOD : 1935 MR#: [id number] ADMIT: 01/09/2017 JOB ID: [id number] DATE: 01/14/2017 INFECTIOUS DISEASE FOLLOWUP NOTE: REASON FOR FOLLOWUP: Complicated ESBL UTI in a dialysis patient. INTERVAL HISTORY: The patient reports he is feeling very well today. He is hoping he can get to go home soon. He denies any fevers, chills, or shortness of breath. No nausea, vomiting, or diarrhea. 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 I reviewed his history through a shearing shed worker. PHYSICAL EXAMINATION: Reveals an afebrile gentleman. Temperature 36.8, pulse 81, respiratory rate 16, blood pressure 164/68. He is saturating fairly well on room air, and he is in no acute distress. Examination of the oral cavity is unremarkable. His mental status is clear this morning. His lungs are likewise clear. Abdomen soft and nontender. His right TMA site is benign. LABORATORIES: Include a white count which has normalized finely to 8100, down from 34,000. His platelets 428. His creatinine is 3.94. Of course, he is a dialysis patient. Procalcitonin is 0.96. His urinalysis had significant pyuria, as well as hematuria and grew the ESBL E coli. Recall that his nasal swab was positive for MRSA. Otherwise, we have negative cultures. IMPRESSION: This patient has definitely turned the corner and is looking back to his normal state of health. His white count has normalized from the profound leukocytosis he had when he came in. At this point, I think he is approaching the point where he could be discharged. I would continue with ertapenem through tomorrow morning and then discharge him on oral doxycycline. Doxycycline is probably a reasonable agent for this infection, though I would prefer to see a little bit longer in terms of the IV more potent agent before transitioning. I do not think he has a good candidate for home IV infusion therapy, given his multiple comorbidities, and doxycycline should be adequate. RECOMMENDATIONS: 1. Ertapenem through tomorrow morning January 15 and then discharge. 2. The patient should go out on doxycycline and I would continue that for seven days through about January 22. The dose would be 100 mg b.i.d., as it is not affected by his renal failure. 3. Note that I will be signing off, and I have discussed this with Dr. Ochoa.
[2017-01-14 12:41] VITALS: BP 132/53; PULSE 75; RESP 18; O2SAT 98
--- NOTE | 2017-01-14 13:52 | NUR ---
JAVIER Signed at 1245PM
--- NOTE | 2017-01-14 14:12 | NUR ---
Activity Pt up to EOB for meals for minor assistance. Encouraging self care behaviors. Discussed plan of care and needs using manager utilization management. Making needs known using call light.
--- NOTE | 2017-01-14 17:34 | PCM.PNMED ---
Subjective Date of Service Jan 14, 2017 Subjective Denies any pain or discomfort Exam Vital Signs Vital Sign - Last Date Time Temp Pulse Resp B/P Pulse Ox O2 Delivery O2 Flow Rate FiO2 01/14/17 12:41 36.7 75 18 132/53 98 Room Air 01/13/17 14:11 1.00 Intake and Output 01/13/17 01/13/17 01/14/17 Cumulative From/Thru 15:00 23:00 07:00 01/09/17 15:24 - 01/14/17 06:08 Intake Total 686 ml 450 ml 4967 ml Output Total 2000 ml 30 ml 15 ml 5945 ml Balance -2000 ml 656 ml 435 ml -978 ml Intake Oral 686 ml 2498 ml IV Total 2019 ml TPN/PPN 450 ml 450 ml Output Urine Total 30 ml 15 ml 2545 ml Ultrafiltrate 2000 ml 3400 ml # Bowel Movements 1 General: Alert, Cooperative, No Acute Distress, Other (disoriented to time and person) Head: Normal Eyes: Scleral Anicteric Nose: Mucous Membr Moist/[place] Mouth: Mucous Membr Moist/[place] Chest & Lungs: Chest Wall Normal, Clear to auscultation & percussion Cardiovascular: Regular Rate/Rhythm Pulses: NL carotid, radial, femoral, DP, PT Abdomen: Non-tender, Non-distended, Normoactive bowel tones, Soft Extremities: No cyanosis/clubbing/edma bilat, Other (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 on 01/11/2017 at 18:35 1. Increased small bilateral pleural effusions with bibasilar outlet opacities likely representing consolidation/pneumonia or aspiration given clinical history. Dictated by: Grey Barr M.D. on 01/11/2017 at 18:35 X-RAY CHEST ONE VIEW, PORTABLE 01/09 IMPRESSION: No acute cardiopulmonary disease process. Dictated by: Tiki Carr MD, PhD on 01/09/2017 at 16:55 Approved by: Tiki Carr MD, PhD on 01/09/2017 at 16:56 12-lead ECG Rate 95, QTC 458 ms 01/10 personally/concurrently reviewed by Ross 01/10 . Ectopic atrial rhythm . Incomplete left bundle branch block * Consider LVH with secondary repol abnrm . Inferior infarct, old * Consider anterior infarct, age indeterminate . When compared with ECG of 09-Jan-2017 21:15:12, . Unspecified significant change Cardiac Echo Impressions Echocardiogram Report: Sridhar Ibrahim on 02/11/2016 03:21 The left ventricle is normal in size. There is mild concentric left ventricular hypertrophy. The ejection fraction is estimated to be 60-65% which has not changed since prior study. There are no obvious focal wall motion abnormalities noted but poor endocardial definition reduces the sensitivity for the detection of such. The E/A ratio is reversed with an elevated E/E', suggesting impaired early relaxation of the left ventricle with possible increased filling pressures. The right ventricle is normal in size and function. The left atrium is moderately dilated. Right atrial size is normal. There is moderate to severe mitral annular calcification. No significant mitral valve stenosis but there appears to be mild mitral stenosis. There has been no significant change since the previous study. The aortic valve is moderately calcified. There is mild to moderate aortic stenosis. The calculated aortic valve area is 1.5 centimeters squared. The peak aortic velocity is 2.1 m/s cm/sec. The peak aortic velocity on the previous exam was 2.0 m/s cm/sec. AR is not well visualized on color Doppler but pressure half-time indicates that is moderate but visually appears to be mild. The aortic root is normal size. Reading Physician:PM Additional Diagnostics US RENAL SONOGRAM: Jed Cardenas M.D. on 01/12/2017 at 20:40 Evaluate masses noted on CT KUB 1. Two small hypoechoic nodules in kidneys, one on each side. Both nodules are suboptimally visualized, therefore, cannot be certain to be cystic. Followup options are sequential ultrasound versus MRI. Dictated by: Jed Cardenas M.D. on 01/12/2017 at 20:40 Assessment & Plan 81 year old Welsh speaking male with diabetes insulin requiring, hypothyroidism, and end stage renal failure on hemodialysis who was brought to [facility] emergency department via EMS from [facility] with concerns for [place] blood in his urine. # Acute Severe Sepsis. Present on admission. Clinically resolved - Meeting criteria with Leukocytosis and Fever with Urinary source. organ dysfunction with lactic acidosis with source ESBL UTI - Further management as noted below # Acute complicated ESBL urinary tract infection. Present on admission - Appreciate ID consult. Will followup with recommendations - Ertapenem through tomorrow morning January 15 and then discharge. - Should go out on doxycycline for seven days through about January 22. The dose would be 100 mg b.i.d. # Acute lactic acidosis. Present on admission. Resolved. 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 Will followup with recommendations - Further dialysis per nephrology # Hypertension, chronic. stable. - continue Losartan 100mg daily, Metoprolol XL 100mg daily and Amlodipine 10mg daily # Diabetes mellitus type 2 with peripheral neuropathy, Nephropathy and gastroparesis - medium correction Lispro algorithm - checking HgA1C 7.1 - continue Reglan with meals # Chronic diastolic congestive heart failure. Stable - further diuresis per nephrology # Anemia, chronic. Stable - ESRD check anemia panel 01/14 in a.m., got dose of Aranesp in dialysis 01/13 # Possible acute respiratory failure/pneumonia - reported as clinically "resolved 01/13" # Acute hematuria, present on admission. Resolved - per earlier notes "stopping continuous bladder irrigation 01/10 to see that it is resolving. Still some hematuria but largely resolved 01/12" - follow-up as outpatient with Dr. Bone - CT shows potential renal mass. Renal ultrasound from 01/12/17 reviewed with nephrology (Dr. Patton) on 01/14/17 and nephrology's impression is that no further workup needed at this time. Dispo: Likely back to SNF tomorrow. VTE Mechanical Devices: Intermittant Pneumatic CD Resuscitation Status: CPR: Attempt Resuscitation Dio Ochoa Jan 14, 2017 17:34 #Leukocytosis/fever- 2' sepsis/infection ESBL UTI improving 01/12, MRSA swab + 01/11 -WBCs have now gone from 18 6/3, 27 6/, 34 01/11, 21 01/12 -Stop Rocephin, start vancomycin/Zosyn 01/11-stop 01/12, repeat urine, CXR, blood cultures 01/11, Ertapemem 01/12-?? Normalized WBCs #Acute respiratory failure/pneumonia-resolved 01/13 -We will check BNP in the a.m. and d-dimer if this is still worsening patient may need VQ scan. -CXR 01/12 suggestive of aspiration pneumonia will add bronchodilators 01/12 #Hematuria-thank you Dr. Bone urology for evaluating we are stopping continuous bladder irrigation 01/10 to see that it is resolving. Still some hematuria but largely resolved 01/12 follow-up as outpatient -CT shows potential renal mass recommend further imaging to workup such as MRI, needs to be discussed with nephrology/radiology as patient has renal failure and gadolinium is out of the question. 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
[2017-01-14] MEDS: Insulin GLARgine 100 Unit/mL Syringe SUBQ SCH (21:09)
[2017-01-14 21:10] VITALS: BP 169/65; PULSE 79; RESP 18; O2SAT 97
[2017-01-15] MEDS: Sodium Chloride LOK Flush 10 mL Syringe IVFLUSH SCH ×2 (01:20→08:30)
[2017-01-15 04:57] VITALS: BP 169/69; PULSE 78; RESP 18; O2SAT 96
--- NOTE | 2017-01-15 06:02 | NUR ---
Activity Pt up to BSC with 2 person assist, able to stand and pivot, non weight bearing to right foot. Pt had formed BM X1. Using urinal for voiding. turning self in bed. fisher eel used for assessment. Call light within reach, frequent rounding, kelly alarm in place.
[2017-01-15] MEDS: Insulin LISPRO 300 Unit/3 mL Inj SUBQ SCH ×3 (08:01→17:30)
[2017-01-15] MEDS: Mupirocin 2% 22 Gm Ointment NASAL SCH (08:07)
[2017-01-15] MEDS ORDERED: MUPI22OI2 NASAL (11:48)
[2017-01-15] MEDS ORDERED: DOXY100T2 PO (11:48)
[2017-01-15] MEDS ORDERED: LABE200T PO (11:48)
--- NOTE | 2017-01-15 11:54 | PCM.DIMED ---
Discharge Instructions Date of Service Jan 15, 2017 Dates of Hospitalization Jan 09, 2017 at 20:24 Discharge Diagnosis Discharge Diagnosis # Acute Severe Sepsis. Present on admission. Clinically resolved # Acute complicated ESBL urinary tract infection. Present on admission # Acute hematuria, present on admission. Resolved # Acute lactic acidosis. Present on admission. Resolved. 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 stable. # Diabetes mellitus type 2 with peripheral neuropathy, Nephropathy and gastroparesis - HgA1C 7.1 # Chronic diastolic congestive heart failure. Stable # Anemia, chronic. Stable Medication Instructions Additional med instructions Stop Plavix and check with urology on when it is safe and OK to resume Diet Discharge Diet: Heart Healthy, Diabetic, Renal Diet Activity Discharge Activity: Other (as tolerated and per physical therapy) Patient Instructions Follow-up plan 1. Followup with urology (Dr. Galileo Bone) in one week. Call to setup appointment [address] [phone] 2. Followup with surgery to remove the gisela at the site of foot amputation, as already scheduled 3. Followup with primary care provider (Dr. Clark) in 1-2 weeks 4. Followup with car cleaner and hemodialysis as previously scheduled. Follow-up Provider: Jose L Clark MD Provider: Mirna Tolliver MD Mid-level Provider (F9): Galileo Bone MD, Masoud Jan 15, 2017 11:54
[2017-01-15 12:32] VITALS: BP 150/69; PULSE 75
--- NOTE | 2017-01-15 13:08 | NUR ---
Dialysis Transfer to dialysis, report called to Haylee Ferrari RN. Escorted to room 244 via bed by HUMAN SERVICES MANAGER and HUMAN SERVICES MANAGER student.
--- NOTE | 2017-01-15 13:35 | NUR ---
Social Work: Discharge Data: Pt is on day 6 of hospitalization. EMR reviewed. D/C orders are in. BENCH ASSEMBLER [employer]LECTRICAL informed by pt's nurse that pt stated he wanted to go home this morning and not to SNF. BENCH ASSEMBLER ELECTRICAL met with pt at bedside, attempted to wake pt multiple times unsuccessfully. BENCH ASSEMBLER ELECTRICAL came back later in the morning, pt again did not wake up. BENCH ASSEMBLER ELECTRICAL attempted to meet with pt during his dialysis this early afternoon, pt sleeping soundly again. BENCH ASSEMBLER ELECTRICAL called pt's daughter, Dora, who states that she talked with pt this morning about going to a SNF and that he is wanting to go home, but is agreeable to going to SNF for a week or two for rehab before going home. Dora states that she and her brother will come to the hospital around 4 today and talk again with pt about SNF and help with transition. BENCH ASSEM[employer]ER [employer]LECTR[employer] spoke with Cielo at [facility], she is setting up cabulance transportation for 5:00pm tonight. No further d/c planning needs at this time. BENCH ASSEMBLER [employer]LECTR[employer] will continue to follow if needs arise. Assessment: Pt from SNF. Plan: Pt will d/c back to [facility] today via cabulance at 5:00pm. No further d/c planning needs at this time. BENCH ASSEMBLER [employer]LECTR[employer] will continue to follow if needs arise. KATTY Vernon
--- NOTE | 2017-01-15 13:35 | PCM.PNNEPH ---
Subjective Date of Service Jan 15, 2017 Subjective The patient continues to improve. He is tolerating his diet and denies any pain , vomiting, or diarrhea. Exam Vital Signs Vital Sign - Last Date Time Temp Pulse Resp B/P Pulse Ox O2 Delivery O2 Flow Rate FiO2 01/15/17 04:57 36.5 78 18 169/69 96 Room Air 01/13/17 14:11 1.00 Intake and Output 01/14/17 01/14/17 01/15/17 Cumulative From/Thru 15:00 23:00 07:00 01/09/17 15:24 - 01/14/17 20:30 Intake Total 686 ml 5653 ml Output Total 20 ml 5965 ml Balance 666 ml -312 ml Intake Oral 2498 ml IV Total 2019 ml TPN/PPN 686 ml 1136 ml Output Urine Total 20 ml 2565 ml Ultrafiltrate 3400 ml # Bowel Movements 1 Exam Neck is supple without adenopathy, thyromegaly, or jugular venous distention. Lungs are clear to auscultation. Heart was regular and rhythmical with a soft systolic murmur. Abdomen is soft without any tenderness rebound guarding masses or hepatosplenomegaly. Extremities not showing evidence of any clubbing , cyanosis, or edema. Lab and Diagnostics Result Diagram: 01/14/17 0541 01/14/17 0541 Microbiology Urine positive for ESBL 01/09 and 01/11, MRSA swab +01/11 , Blood cultures -01/09, 01/11 X-Rays, CTs and MRIs X-RAY CHEST, TWO VIEWS : Grey Barr M.D. on 01/11/2017 at 18:35 1. Increased small bilateral pleural effusions with bibasilar outlet opacities likely representing consolidation/pneumonia or aspiration given clinical history. Dictated by: Grey Barr M.D. on 01/11/2017 at 18:35 X-RAY CHEST ONE VIEW, PORTABLE 01/09 IMPRESSION: No acute cardiopulmonary disease process. Dictated by: Tiki Carr MD, PhD on 01/09/2017 at 16:55 Approved by: Tiki Carr MD, PhD on 01/09/2017 at 16:56 12-lead ECG Rate 95, QTC 458 ms 01/10 personally/concurrently reviewed by Ross 01/10 . Ectopic atrial rhythm . Incomplete left bundle branch block * Consider LVH with secondary repol abnrm . Inferior infarct, old * Consider anterior infarct, age indeterminate . When compared with ECG of 09-Jan-2017 21:15:12, . Unspecified significant change Cardiac Echo Impressions Echocardiogram Report: Sridhar Buckleyo on 02/11/2016 03:21 The left ventricle is normal in size. There is mild concentric left ventricular hypertrophy. The ejection fraction is estimated to be 60-65% which has not changed since prior study. There are no obvious focal wall motion abnormalities noted but poor endocardial definition reduces the sensitivity for the detection of such. The E/A ratio is reversed with an elevated E/E', suggesting impaired early relaxation of the left ventricle with possible increased filling pressures. The right ventricle is normal in size and function. The left atrium is moderately dilated. Right atrial size is normal. There is moderate to severe mitral annular calcification. No significant mitral valve stenosis but there appears to be mild mitral stenosis. There has been no significant change since the previous study. The aortic valve is moderately calcified. There is mild to moderate aortic stenosis. The calculated aortic valve area is 1.5 centimeters squared. The peak aortic velocity is 2.1 m/s cm/sec. The peak aortic velocity on the previous exam was 2.0 m/s cm/sec. AR is not well visualized on color Doppler but pressure half-time indicates that is moderate but visually appears to be mild. The aortic root is normal size. Reading Physician:PM Additional Diagnostics US RENAL SONOGRAM: Jed Cardenas M.D. on 01/12/2017 at 20:40 Evaluate masses noted on CT KUB 1. Two small hypoechoic nodules in kidneys, one on each side. Both nodules are suboptimally visualized, therefore, cannot be certain to be cystic. Followup options are sequential ultrasound versus MRI. Dictated by: Jed Cardenas M.D. 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 Neal Patton DO Jan 15, 2017 13:35
--- NOTE | 2017-01-15 16:02 | NUR ---
Dialysis note: 3 1/2 hrs tx 2000 ml net UF HIPOLITO fistula, accessed w/ no problems Pls see DTR for VS details Qb 400-500 Heparin given O2 @ 2L via NC on during tx Tolerated tx, slept at intervals Fistula needle sites clotted w/in 10 min Stable condition at end of tx Report given to Haroldo WIN
--- NOTE | 2017-01-15 16:37 | PCM.DC.MED ---
Discharge Summary Date of Service Jan 15, 2017 Dates of Hospitalization Date of Hospital Admission Jan 09, 2017 at 20:24 Date of Discharge: Jan 15, 2017 Providers: Admitting Physician: Arthur Meza MD Primary Care Physician: Jose L Clark MD Attending Physician: Arthur Meza MD Diagnosis at Time of Discharge Diagnosis at Time of Discharge # Acute Severe Sepsis. Present on admission. Clinically resolved # Acute complicated ESBL urinary tract infection. Present on admission # Acute hematuria, present on admission. Resolved # Acute lactic acidosis. Present on admission. Resolved. 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 stable. # Diabetes mellitus type 2 with peripheral neuropathy, Nephropathy and gastroparesis - HgA1C 7.1 # Chronic diastolic congestive heart failure. Stable # Anemia, chronic. Stable Consultations 1. ID 2. Nephrology Procedures XRay, CTs & MRIs X-RAY CHEST, TWO VIEWS : Grey Barr M.D. on 01/11/2017 at 18:35 1. Increased small bilateral pleural effusions with bibasilar outlet opacities likely representing consolidation/pneumonia or aspiration given clinical history. Dictated by: Grey Barr M.D. on 01/11/2017 at 18:35 Date of Service: 01/10/17 1531 PROCEDURE: CT KUB ([id number]) IMPRESSION: Small bilateral pleural effusions, adjacent basilar atelectasis. Asymmetric interstitial prominence greater on the right than the left a small portion of the lung bases included on this study. Morillo catheter drains the bladder lumen. The bladder wall appears somewhat thickened, uncertain etiology and clinical significance. As discussed above it is possible that there are bilateral solid masses involving the kidneys, at the mid kidney level posterior laterally, but the absence of intravenous contrast disallows accurate assessment. Followup by elective ultrasound or contrast enhanced CT or MR scanning may be warranted. Dictated by: Hieu Lindsay M.D. on 01/10/2017 at 17:28 Approved by: Hieu Lindsay M.D. on 01/10/2017 at 17:33 Other Diagnostics Date of Service: 01/12/17 1507 PROCEDURE: US RENAL SONOGRAM IMPRESSION: 1. Two small hypoechoic nodules in kidneys, one on each side. Both nodules are suboptimally visualized, therefore, cannot be certain to be cystic. Followup options are sequential ultrasound versus MRI. Dictated by: Jed Cardenas M.D. on 01/12/2017 at 20:40 Approved by: Jed Cardenas M.D. on 01/12/2017 at 20:48 Brief History As noted in H&P by Dr. Meza: Geraldo Tobias is a 81 year old Wolof speaking male with diabetes insulin requiring, hypothyroidism, and end stage renal failure on hemodialysis who was brought to [facility] emergency department via EMS from [facility] with concerns for stanton blood in his urine. History is difficult and limited due to the language barrier and failure of the animal technician system. Per nurse and EMS, his SOB is baseline and he last received dialysis yesterday. His step daughter reports that when he went to the bathroom today, he had a bowel movement and a nurse noticed that there was blood in the toilet. [facility] send him to the ED for concern of GI bleeding but it was noted on the ED that he had dark and bloody urine. Patient had reportedly denies any abdominal pain. There was a possible fever at [facility]F. He is currently taking Plavix Case discussed with Dr Gabriel, workup showed Sepsis and UTI as well as lactic acidosis. Fluids and antibiotics given and will be admitted Hospital Course # Acute Severe Sepsis. Present on admission. Clinically resolved - Meeting criteria with Leukocytosis and Fever with Urinary source. organ dysfunction with lactic acidosis with source ESBL UTI - Further management as noted below # Acute complicated ESBL urinary tract infection. Present on admission - Appreciate ID consult. Will followup with recommendations - Ertapenem through January 15 and then stopped - Per ID will go out on doxycycline for seven days through about January 22. The dose would be 100 mg b.i.d. # Acute lactic acidosis. Present on admission. Resolved. 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 Will followup with recommendations - Patient underwent hemodialysis during this hospital per nephrology # Hypertension, chronic. stable. - Will be discharged on BP meds noted below and per nephrology recommendations # Diabetes mellitus type 2 with peripheral neuropathy, Nephropathy and gastroparesis - checking HgA1C 7.1 # Chronic diastolic congestive heart failure. Stable - further diuresis per nephrology # Anemia, chronic. Stable - ESRD check anemia panel 01/14 in a.m., got dose of Aranesp in dialysis 01/13 # Possible acute respiratory failure/pneumonia - reported as clinically "resolved 01/13" # Acute hematuria, present on admission. Resolved - per earlier notes "stopping continuous bladder irrigation 01/10 to see that it is resolving. Still some hematuria but largely resolved 01/12" - follow-up as outpatient with Dr. Bone - CT shows potential renal mass. Renal ultrasound from 01/12/17 reviewed with nephrology (Dr. Patton) on 01/14/17 and nephrology's impression is that no further workup needed at this time. 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 - Discussed with patient's daughter on 01/14 who notes that patient has followup setup with surgeons in [facility] and she plans to take him there Exam Vital Signs (Last) Date Time Temp Pulse Resp B/P Pulse Ox O2 Delivery O2 Flow Rate FiO2 01/15/17 12:32 75 01/15/17 04:57 36.5 18 169/69 96 Room Air 01/13/17 14:11 1.00 Exam General: Alert, Cooperative, No Acute Distress Head: Normal Eyes: Scleral Anicteric Nose: Mucous Membr Moist/[place] Mouth: Mucous Membr Moist/[place] Chest & Lungs: Chest Wall Normal, Clear to auscultation bilat Cardiovascular: Regular Rate/Rhythm Abdomen: Non-tender, Non-distended, Normoactive bowel tones, Soft Test 01/09/17 16:43 01/09/17 17:28 01/10/17 10:53 01/11/17 15:44 Hold Purple Top Tube Received (Received) Hold Blue Top Tube Received (Received) Hemoglobin A1c 7.1% (4.8-5.6) Phosphorus Level 3.6mg/dL (2.5-4.9) Hold Red Top Tube Received (Received) Hold [place] Top Tube Received (Received) Hold [place] Top Tube Received (Received) Hold Urine Received (Received) Troponin T 0.102ug/L (0.0-0.011) Urine Color Bloody (YELLOW) Urine Appearance Turbid (CLEAR,HAZY) Urine pH 8.0 (5.0-8.0) Urine Specific [place] 1.015 (1.003-1.035) Urine Protein 100mg/dL (NEG,TRACE) Urine Glucose (UA) 250mg/dL (NEGATIVE) Urine Ketones Negativemg/dL (NEGATIVE) Urine Occult Blood Large (NEGATIVE) Urine Nitrite Negative (NEGATIVE) Urine Bilirubin Negative (NEGATIVE) Urine Urobilinogen Normalmg/dL (NORMAL) Urine Leukocyte Esterase Moderate (NEGATIVE) Urine RBC >50/hpf (0-2) Urine WBC 11-50/hpf (0-5) Urine Epithelial Cells Occasional/hpf (NONE-MOD) Urine Crystals None seen (NONE SEEN) Urine Bacteria None/hpf (NONE-FEW) Urine Hyaline Casts None/lpf (NONE) Urine Granular Casts None seen (NONE SEEN) Urine Waxy Casts None seen (NONE SEEN) Urine Red Blood Cell Casts None seen (NONE SEEN) Urine White Blood Cell Casts None seen (NONE SEEN) Urine Mucus None seen (None Seen) Urine Trichomonas None seen (NONE SEEN) Urine Yeast None (NONE SEEN) Urinalysis Comment None Urine Culture Reflexed Indicated Test 01/11/17 15:50 01/12/17 06:35 01/14/17 05:41 Erythrocyte Sedimentation Rate > 140mm/hr (0-30) Lactic Acid Level 1.0mmol/L (0.4-2.0) C-Reactive Protein 33.5mg/dL (0.0-0.5) D-Dimer 2.12mg/L FEU (<0.50) Total Bilirubin 0.3mg/dL (0.0-1.2) Aspartate Amino Transf (AST/SGOT) 25U/L (0-50) Alanine Aminotransferase (ALT/SGPT) 10U/L (0-44) Alkaline Phosphatase 120U/L (25-160) Pro-B-Type Natriuretic Peptide > 83742he/mL (0-486) Total Protein 6.7g/dL (6.4-8.4) Albumin 2.8g/dL (3.4-5.0) Procalcitonin 0.96ng/mL (0.00-0.08) Random Vancomycin Level 19.1ug/mL Rx White Blood Count 8.1th/mm3 (3.8-10.1) Red Blood Count 2.79mil/mm3 (4.40-5.80) Hemoglobin 8.3g/dL (13.8-17.2) Hematocrit 26.3% (41.0-50.0) Mean Corpuscular Volume 94.3fL (81-100) Mean Corpuscular Hemoglobin 29.7pg (27.0-35.0) Mean Corpuscular Hemoglobin Concent 31.6% (32.0-37.0) Red Cell Distribution Width 14.5% (12.3-15.4) Platelet Count 428bil/L (150-400) Neutrophils (%) (Auto) 60.1% (40-74) Lymphocytes (%) (Auto) 20.7% (14-46) Monocytes (%) (Auto) 13.0% (4-12) Eosinophils (%) (Auto) 4.9% (0-5) Basophils (%) (Auto) 0.6% (0-3) Reticulocyte Count,Calculated 1.2% (0.6-2.6) Sodium Level 137mEq/L (134-144) Potassium Level 4.4mEq/L (3.5-5.2) Chloride Level 95mEq/L (97-108) Carbon Dioxide Level 28mmol/L (18-29) Blood Urea Nitrogen 22mg/dL (8-27) Creatinine 3.94mg/dL (0.76-1.27) Estimat Glomerular Filtration Rate 16mL/min (>59) Glucose Level 146mg/dL (60-99) Calcium Level 8.7mg/dL (8.5-10.1) Iron Level 27ug/dL (35-150) Total Iron Binding Capacity 146ug/dL (250-450) Percent Iron Saturation 18%sat (15-50) Unsaturated Iron Binding 119.4ug/dL Ferritin 1158ng/mL (30-400) Vitamin B12 Level 883pg/mL (211-946) Microbiology Results Urine positive for ESBL 01/09 and 01/11, MRSA swab +01/11 , Blood cultures -01/09, 01/11 Discharge Medications Discharge Medications Amlodipine (Amlodipine) 10 Mg Tablet 10 MG PO DAILY (Reported) Cinacalcet (Sensipar) 30 Mg Tablet 60 MG PO QAM (Reported) Doxycycline Hyclate (Doxycycline Hyclate) 100 Mg Tablet 100 MG PO BID Prescribed by: ERYN TREVIZO MD Ergocalciferol (Vitamin D2) (Vitamin D2) 2,000 Unit Tablet 50,000 UNIT PO DAILY (Reported) Famotidine (Famotidine) 20 Mg Tablet 20 MG PO QAM (Reported) Insulin Aspart (NovoLOG U100 Insulin Vial) 100 U/Ml U 1 UNIT SUBQ QID before meals (Reported) if BS 150-200 = 1 unit BS 201-250 = 2 units BS 251-300 = 3 units BS 301-350 = 4 units BS 351-400 = 6 units call MD for BS <70 or >400 Insulin Glargine (Lantus U100 Insulin Vial) 100 Unit/Ml Vial 8 UNIT SUBQ bs<200 (Reported) Insulin Glargine (Lantus U100 Insulin Vial) 100 Unit/Ml Vial 10 UNIT SUBQ BS > 200 (Reported) Labetalol (Labetalol) 200 Mg Tablet 400 MG PO BID Prescribed by: ERYN TREVIZO MD Levothyroxine (Levothyroxine) 200 Mcg Tablet 200 MCG PO HS (Reported) 200mcg+50mcg to equal 250mcg total Levothyroxine (Levothyroxine) 50 Mcg Tablet 50 MCG PO HS (Reported) pt takes 250mcg total, 50mcg+200mcg tab Metoclopramide (Metoclopramide) 5 Mg Tab 5 MG PO QID (Reported) Mupirocin (Mupirocin Ointment) 22 Gm Oint...g. 1 APPLIC NASAL BID Prescribed by: ERYN TREVIZO MD Sevelamer Carbonate (Renvela) 800 Mg Tablet 2,400 MG PO TIDWM (Reported) Valsartan (Diovan) 320 Mg Tablet 320 MG PO HS (Reported) As needed Acetaminophen (Acetaminophen) 325 Mg Tablet 650 MG PO Q4H PRN PRN For Fever ( Reported) Additional med instructions Stop Plavix and check with urology on when it is safe and OK to resume Followup Plan Disposition: [facility] Follow-up plan 1. Followup with urology (Dr. Galileo Bone) in one week. Call to setup appointment [address] [id number] 2. Followup with surgery to remove the gisela at the site of foot amputation, as already scheduled 3. Followup with primary care provider (Dr. Clark) in 1-2 weeks 4. Followup with procurement professional logistics and hemodialysis as previously scheduled. Discharge Diet: Heart Healthy, Diabetic, Renal Diet Discharge Activity: Other (as tolerated and per physical therapy) Follow-up Provider: Jose L Clark MD Provider: Mirna Tolliver MD Mid-level Provider: Galileo Bone MD Time spent 35 min copies to: Jose L Clark MD; Mirna Tolliver MD, Masoud Jan 15, 2017 16:37
--- NOTE | 2017-01-15 17:52 | NUR ---
Discharge D/C to [facility] via [facility] and [facility] with daughter in law at bedside. Report called to Cielo at [facility].
== END 2017-01-15 17:30 | DRG 871 ==
LOC: SED 15:14 → EDBD 15:14 → MPC 20:24
PROVIDERS: ADMIT Hospitalist; ATTEND Hospitalist
PROC: 5A1D60Z (ICD-10-PCS; principal; 2017-01-11)
DX: A41.51 Sepsis due to Escherichia coli [E. coli] (principal); N18.6 End stage renal disease; J69.0 Pneumonitis due to inhalation of food and vomit; J96.01 Acute respiratory failure with hypoxia; I13.2 Hypertensive heart and chronic kidney disease with heart failure and with stage 5 chronic kidney disease, or end stage renal disease; I50.32 Chronic diastolic (congestive) heart failure; N30.01 Acute cystitis with hematuria; N25.81 Secondary hyperparathyroidism of renal origin; Z99.2 Dependence on renal dialysis; E11.43 Type 2 diabetes mellitus with diabetic autonomic (poly)neuropathy; K31.84 Gastroparesis; R65.20 Severe sepsis without septic shock; E11.21 Type 2 diabetes mellitus with diabetic nephropathy; B96.20 Unspecified Escherichia coli [E. coli] as the cause of diseases classified elsewhere; Z16.12 Extended spectrum beta lactamase (ESBL) resistance; Z79.4 Long term (current) use of insulin; E03.9 Hypothyroidism, unspecified; D63.1 Anemia in chronic kidney disease; E11.22 Type 2 diabetes mellitus with diabetic chronic kidney disease

== ENCOUNTER 2017-04-08 16:42 | Emergency (ER) | payer MEDICARE, MEDICAID ==
[~2017-04-08] VITALS: Ht 160 cm; Wt 64.5 kg
[~2017-04-08 16:42] MED LIST changes: +ACET325T51 PO; +AMLO10TA3 PO; -AMLO5TAB2 PO; -ANTIBIOTIC PO; -CHOL500050 PO; -CIPR-198 PO; -CLOP75TA28 PO; +DOXY100T2 PO; +ERGO2000 PO; -FURO80TA83 PO; -INSU100I13 SUBQ; +INSU100V7 SUBQ; +LABE200T PO; -METO-274 PO; +MUPI22OI2 NASAL
[2017-04-08 17:20] VITALS: BP 173/64; PULSE 64; RESP 20; O2SAT 100
--- NOTE | 2017-04-08 18:30 | ED.REPORT ---
HPI-Trauma Minor / Fall Date of Service Apr 08, 2017 ED Provider: Deshawn Watts DO The pt is an 81 y/o male with a hx of IDDM, hypothyroidism, and end stage renal failure on hemodialysis who presents to the ED complaining of left sided chest pain after falling from his wheelchair yesterday. His pain mostly comes on when he laughs, coughs, or sneezes. Yesterday, the pt was in his wheelchair, being pushed by a dial-a-ride cattle driver, when the wheelchair went over a bump and the pt fell face forward on the concrete. He did not lose consciousness and remembers the event. At that time, he had a nose bleed but did not have any other complaints. He did not want to go to the hospital and went for his dialysis appointment instead. He felt fine throughout the day yesterday and slept comfortably at night. Nursing Notes Stated Complaint: GLF HIT FACE YESTERDAY Chief Complaint: Multiple Trauma/Fall Nursing Notes Reviewed: Yes Allergies: Coded Allergies: sodium phosphate (Verified Allergy, Unknown, 12/24/16) PT has ESRD, he cannot have phosphate. Scheduled Amlodipine (Amlodipine) 10 Mg Tablet 10 MG PO DAILY Cinacalcet (Sensipar) 30 Mg Tablet 60 MG PO QAM Doxycycline Hyclate (Doxycycline Hyclate) 100 Mg Tablet 100 MG PO BID Ergocalciferol (Vitamin D2) (Vitamin D2) 2,000 Unit Tablet 50,000 UNIT PO DAILY Famotidine (Famotidine) 20 Mg Tablet 20 MG PO QAM Insulin Aspart (NovoLOG U100 Insulin Vial) 100 U/Ml U 1 UNIT SUBQ QID before meals if BS 150-200 = 1 unit BS 201-250 = 2 units BS 251-300 = 3 units BS 301-350 = 4 units BS 351-400 = 6 units call MD for BS <70 or >400 Insulin Glargine (Lantus U100 Insulin Vial) 100 Unit/Ml Vial 8 UNIT SUBQ bs<200 Insulin Glargine (Lantus U100 Insulin Vial) 100 Unit/Ml Vial 10 UNIT SUBQ BS > 200 Labetalol (Labetalol) 200 Mg Tablet 400 MG PO BID Levothyroxine (Levothyroxine) 200 Mcg Tablet 200 MCG PO HS 200mcg+50mcg to equal 250mcg total Levothyroxine (Levothyroxine) 50 Mcg Tablet 50 MCG PO HS pt takes 250mcg total, 50mcg+200mcg tab Metoclopramide (Metoclopramide) 5 Mg Tab 5 MG PO QID Mupirocin (Mupirocin Ointment) 22 Gm Oint...g. 1 APPLIC NASAL BID Sevelamer Carbonate (Renvela) 800 Mg Tablet 2,400 MG PO TIDWM Valsartan (Diovan) 320 Mg Tablet 320 MG PO HS Scheduled PRN Acetaminophen (Acetaminophen) 325 Mg Tablet 650 MG PO Q4H PRN PRN For Fever Tramadol (Tramadol) 50 Mg Tablet 50 MG PO Q4H PRN PRN For Pain General Time Seen by MD: 18:29 Chief Complaint Fall Hx Obtained From: Patient, Daughter Arrived By: Walk-in Onset Occurred: Yesterday Symptom Duration: Since onset Location: Chest Quality: Painful Severity: Current: No pain currently Severity: Maximum: Mild Recent Healthcare: No recent doctor visit Past Medical History Past Medical History Notes: Resident Caregiver: Dr. Tolliver Past Medical History Diabetes, on insulin Peripheral artery disease (on clopidegrel) Chronic renal failure on dialysis History of TIA Hypothyroid Past Surgical History AV fistula Stent/revascularization RLE Transmetatarsal amputation R Foot at [place] 12/2016 Smoking History Former Smoker Social History Other Social History: Good social support, Local resident Ambulatory Status Wheelchair Review of Systems Neurologic: Denies: Change LOC Complete sys rev & neg: except as marked. Cardiovascular: Reports: Chest pain Physical Exam Initial Vital Signs Vital Signs (First) Date Time Temp Pulse Resp B/P Pulse Ox O2 Delivery O2 Flow Rate FiO2 04/08/17 17:20 35.9 64 20 173/64 100 Room Air Initial VS: Reviewed Head / Eyes: Atraumatic, Normocephalic Cardiovascular: Regular rate & rhythm, Heart sounds normal, Intact distal pulses Abdomen / GI: Soft, Non-tender, No guarding, No rebound, No distention Skin: Warm Neurologic: Alert, Oriented, Nonfocal General/Constitutional: Awake, Alert, No acute distress, Well appearing, Cooperative Neck: Atraumatic, Supple, Full range of motion, No swelling, Non-tender ENT: Atraumatic, Airway patent, Pharynx NL, Mastoid area NL, Nose exam NL, No facial swelling Small abrasion on left side of the nose without bony stepoff, significant ecchymosis or facial tenderness. No crepitus with jaw motion. No malocclusion. Respiratory / Chest: Atraumatic, Breath sounds NL, Breath sounds = bilat, No respiratory distress, No rales, No rhonchi, No wheezing Tenderness to left costochondral juntion overlying rib 4. Upper Extremity / MS: Atraumatic, Full range of motion, No swelling, Non-tender , No erythema, No deformity, Neurologic intact, Vascular intact Fistula on the right arm. Lower Extremity / Pelvis / MS: Atraumatic, Full range of motion, No swelling, Non-tender, No erythema, No deformity, Neurologic intact, Vascular intact Small abrasion over the left knee. Full range of motion of left knee. 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 No swelling and tenderness to the left knee. Interpretation & Diagnostics ECG Interpretation ECG Interpretation: Sinus rhythm. Rate 68. First degree AV block with IL of 243. Old inferior infarct. Compared to the ECG on 01/10/17, the rate has decreased. Time: 18:30 Interpreted by: ED physician X-Ray Chest Interpretation Chest Xray Interpretation: IMPRESSION: No acute disease. No radiographically visible rib fracture identified. Dictated by: Sam Malik M.D. on 04/08/2017 at 18:39 Approved by: Sam Malik M.D. on 04/08/2017 at 18:44 View: Portable, 1 view Interpretation / Wet Read by: Interpret - Radiologist Re-Eval/Medical Decision Med Decision/Clinical Course Patient is here after a fall out of a wheelchair when it hit a bump yesterday. He was doing fine after the incident but has had increasing amounts of chest wall pain and pole lift operator wanted to know if there were rib fractures. There are no radiographically obvious rib fracture seen by myself or radiologist. This was reassuring to the patient. I advised that he take pain medication as needed and discharged him home with a small amount of tramadol. I did not scan his head because there were no major injuries identified, it is guarded in more than one day. And he is not on warfarin or other novel anticoagulants. He will follow up with his PCP tomorrow or early next week, return if worsening symptoms Source of Hx: Old records Re-Evaluation/Progress #1: Time of Eval: 18:55 Re-Evaluation/Progress Note: Rechecked pt. Discussed imaging results, diagnosis and plan to discharge. Pt understands and agrees with the plan. F/U instruction and RTER warning given. All questions addressed Re-Evaluation/Progress #2: Time of Eval: 19:12 Re-Evaluation/Progress Note: As per the pt's daughter, the pt gets dizzy after hydrocodone. Will prescribe tramadol. Counseled Regarding: Diagnosis, Need for follow-up, When/why to return to ED Discharge & Departure Impression: Primary Impression: Fall from wheelchair Encounter type: initial encounter Qualified Code: W05.0XXA - Fall from non- moving wheelchair, initial encounter Additional Impression: Contusion of rib on left side Encounter type: initial encounter Qualified Code: S20.212A - Contusion of left front wall of thorax, initial encounter Disposition: Home Discharge Condition All VS Reviewed: Yes Condition: Stable Additional Instructions: Thank you for entrusting us with your care today. Your X-ray is reassuring. There is no sign of a rib fracture. Take the pain medication as prescribed. You should take deep breaths as much as you can to prevent an infection. Follow up with your primary care provider for further evaluation. If you experience any new or worsening symptoms return to the emergency department. Apolonia por confiarnos thomas cuidado hoy. Thomas radiografa es reconfortante. No hay signos de aldair fractura de rosa. [place] el medicamento para el dolor segn lo prescrito. Usted debe lizette respiraciones profundas tanto sarbjit pueda para prevenir aldair infeccin. [place] un seguimiento con thomas proveedor de atencin primaria para aldair evaluacin posterior. Si experimenta algn nuevo o empeoramiento de los sntomas, regrese al servicio de urgencias. Referrals: Jose L Clark MD (PCP) Scribe Attestation Portions of this note were transcribed by Dakota Maynard. I,, personally performed the history,physical exam and medical decision-making;I reviewed and confirmed the accuracy of the information in the transcribed note. Signed by Mini Peters. 04/08/17 copies to: Jose L Clark MD, Gary R DO Apr 08, 2017 18:30 Dakota Maynard Apr 08, 2017 18:46
[2017-04-08] MEDS ORDERED: HYDROcodone-APAP 5-325 mg Tablet PO ONE (18:45)
--- NOTE | 2017-04-08 18:45 | DRSVH ---
PROCEDURE: X-RAY LEFT RIBS INCLUDEING PA CHEST, MINUMUM THREE VIEWS ([id number]) INDICATIONS: fall/chest wall pain TECHNIQUE: 3 views of the left ribs were acquired, along with a single view chest. COMPARISON: [facility], CR, XR CHEST 2VW, 01/11/2017, 18:07. FINDINGS: Surgical changes and devices: None. Bones and chest wall: No fractures or dislocations. No suspicious bony lesions. Overlying soft tis sues appear unremarkable. Lungs and pleura: No pleural effusions or pneumothorax. Lungs appear clear. Scattered scarring/atel ectasis Mediastinum: Mediastinal contours appear normal. Heart size is normal. IMPRESSION: No acute disease. No radiographically visible rib fracture identified. Dictated by: Sam Malik M.D. on 04/08/2017 at 18:39 Approved by: Sam Malik M.D. on 04/08/2017 at 18:44
[2017-04-08] MEDS ORDERED: TRAM50TA2 PO (19:13)
[2017-04-08 19:29] VITALS: BP 164/68; PULSE 74; RESP 22; O2SAT 100
== END 2017-04-08 19:30 | disposition home or self-care (01) ==
LOC: SED 16:42
DX: S20.212A Contusion of left front wall of thorax, initial encounter (principal); W05.0XXA Fall from non-moving wheelchair, initial encounter; Y93.89 Activity, other specified; Y92.89 Other specified places as the place of occurrence of the external cause; Y99.8 Other external cause status; E11.22 Type 2 diabetes mellitus with diabetic chronic kidney disease; N18.6 End stage renal disease; E03.9 Hypothyroidism, unspecified; E11.59 Type 2 diabetes mellitus with other circulatory complications; I73.9 Peripheral vascular disease, unspecified; Z86.73 Personal history of transient ischemic attack (TIA), and cerebral infarction without residual deficits; Z99.2 Dependence on renal dialysis; Z98.890 Other specified postprocedural states; Z79.4 Long term (current) use of insulin; Z87.891 Personal history of nicotine dependence; Z88.8 Allergy status to other drugs, medicaments and biological substances

== ENCOUNTER 2017-04-23 14:00 | Emergency (ER) | payer MEDICARE, MEDICAID ==
[~2017-04-23 14:00] MED LIST changes: +TRAM50TA2 PO
[2017-04-23 14:02] VITALS: BP 173/64; PULSE 75; RESP 34; O2SAT 100
--- NOTE | 2017-04-23 14:09 | ED.REPORT ---
HPI-Syncope Date of Service Apr 23, 2017 ED Provider: Dennis Nayak DO An 81 year old Icelandic speaking male with a history of insulin dependent diabetes mellitus, hypothyroidism and end stage renal failure on hemodialysis presents to the ED via EMS following a syncopal episode that occurred just prior to arrival while the patient was at dialysis. The patient was reportedly unconscious for approx. 60 seconds and has no memory of the episode. BP in the field was in the 170's/60's. Patient is currently complaining of nausea and lightheadedness. He denies pain, headache or dyspnea. Upon re-evaluation. the patient's family state that he fell asleep while at dialysis. Nursing Notes Stated Complaint: HIGH BLOOD PRESSURE Chief Complaint: General Complaint Nursing Notes Reviewed: Yes Allergies: Coded Allergies: sodium phosphate (Verified Allergy, Unknown, 12/24/16) PT has ESRD, he cannot have phosphate. Scheduled Amlodipine (Amlodipine) 10 Mg Tablet 10 MG PO DAILY Cinacalcet (Sensipar) 30 Mg Tablet 60 MG PO QAM Doxycycline Hyclate (Doxycycline Hyclate) 100 Mg Tablet 100 MG PO BID Ergocalciferol (Vitamin D2) (Vitamin D2) 2,000 Unit Tablet 50,000 UNIT PO DAILY Famotidine (Famotidine) 20 Mg Tablet 20 MG PO QAM Insulin Aspart (NovoLOG U100 Insulin Vial) 100 U/Ml U 1 UNIT SUBQ QID before meals if BS 150-200 = 1 unit BS 201-250 = 2 units BS 251-300 = 3 units BS 301-350 = 4 units BS 351-400 = 6 units call MD for BS <70 or >400 Insulin Glargine (Lantus U100 Insulin Vial) 100 Unit/Ml Vial 8 UNIT SUBQ bs<200 Insulin Glargine (Lantus U100 Insulin Vial) 100 Unit/Ml Vial 10 UNIT SUBQ BS > 200 Labetalol (Labetalol) 200 Mg Tablet 400 MG PO BID Levothyroxine (Levothyroxine) 200 Mcg Tablet 200 MCG PO HS 200mcg+50mcg to equal 250mcg total Levothyroxine (Levothyroxine) 50 Mcg Tablet 50 MCG PO HS pt takes 250mcg total, 50mcg+200mcg tab Metoclopramide (Metoclopramide) 5 Mg Tab 5 MG PO QID Mupirocin (Mupirocin Ointment) 22 Gm Oint...g. 1 APPLIC NASAL BID Sevelamer Carbonate (Renvela) 800 Mg Tablet 2,400 MG PO TIDWM Valsartan (Diovan) 320 Mg Tablet 320 MG PO HS Scheduled PRN Acetaminophen (Acetaminophen) 325 Mg Tablet 650 MG PO Q4H PRN PRN For Fever Tramadol (Tramadol) 50 Mg Tablet 50 MG PO Q4H PRN PRN For Pain General Time Seen by Provider: 14:10 Chief Complaint Other (Syncope) Hx Obtained From: Patient Arrived By: Ambulance Onset Occurred: Just prior to arrival Symptom Duration: 1 - 15 minutes (1 min) Progression Since Onset: Unchanged Associated with: Reports: Lightheaded, Denies: Headache Pertinent Negative: Pt denies other symptoms Recent Healthcare: No recent hospitalization, Recent doctor visit Past Medical History Past Medical History Notes: Milking Machine Operator: Dr. Tolliver Past Medical History Diabetes, on insulin Peripheral artery disease (on clopidegrel) Chronic renal failure on dialysis History of TIA Hypothyroid Past Surgical History AV fistula Stent/revascularization RLE Transmetatarsal amputation R Foot at [place] 12/2016 Smoking History Former Smoker Social History Other Social History: Good social support, Local resident Ambulatory Status Wheelchair Review of Systems Respiratory: Denies: Shortness of breath Cardiovascular: Denies: Chest pain GI: Reports: Nausea, Denies: Abdominal pain Musculoskeletal: Denies: Back pain Neurologic: Reports: Lightheaded, Syncope, Denies: Headache Complete sys rev & neg: except as marked. Physical Exam Initial Vital Signs Vital Signs (First) Date Time Temp Pulse Resp B/P Pulse Ox O2 Delivery O2 Flow Rate FiO2 04/23/17 14:02 36.2 75 34 173/64 100 04/23/17 15:00 Room Air Initial VS: Reviewed Head / Eyes: Atraumatic, Normocephalic, PERRL Neck: Supple, Non-tender, Full range of motion Upper Extremities: Vascular intact, Neuro intact, No swelling, No tenderness Skin: Warm, Dry, No cyanosis Psychiatric: Mood/affect normal, Behavior normal, Normal thought content General/Constitutional: Awake, Alert, No acute distress Respiratory / Chest: Atraumatic, Breath sounds NL, Breath sounds = bilat, No respiratory distress Cardiovascular: Heart rate NL, Regular rhythm, Heart sounds NL CARDIO: Hypertensive Lower Extremity / Pelvis / MS: Neurologic intact, Vascular intact LOWER EXTREMITIES: 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 Neurologic: Oriented X3, Speech NL, No motor deficits, No sensory deficits, CN II - XII intact Interpretation & Diagnostics Lab Results Interpretation Result Diagram: 04/23/17 1430 04/23/17 1430 Test 04/23/17 14:30 White Blood Count 5.2th/mm3 (3.8-10.1) Red Blood Count 4.79mil/mm3 (4.40-5.80) Hemoglobin 13.2g/dL (13.8-17.2) Hematocrit 40.5% (41.0-50.0) Mean Corpuscular Volume 84.6fL (81-100) Mean Corpuscular Hemoglobin 27.6pg (27.0-35.0) Mean Corpuscular Hemoglobin Concent 32.6% (32.0-37.0) Red Cell Distribution Width 17.1% (12.3-15.4) Platelet Count 260bil/L (150-400) Neutrophils (%) (Auto) 54.9% (40-74) Lymphocytes (%) (Auto) 26.3% (14-46) Monocytes (%) (Auto) 12.0% (4-12) Eosinophils (%) (Auto) 5.8% (0-5) Basophils (%) (Auto) 0.6% (0-3) Prothrombin Time 10.4sec (8.1-12.5) Prothromb Time International Ratio 0.97ratio D-Dimer 1.99mg/L FEU (<0.50) Sodium Level 133mEq/L (134-144) Potassium Level 4.1mEq/L (3.5-5.2) Chloride Level 88mEq/L (97-108) Carbon Dioxide Level 26mmol/L (18-29) Blood Urea Nitrogen 37mg/dL (8-27) Creatinine 3.93mg/dL (0.76-1.27) Estimat Glomerular Filtration Rate 16mL/min (>59) Glucose Level 146mg/dL (60-99) Calcium Level 9.3mg/dL (8.5-10.1) Magnesium Level 1.9mg/dL (1.6-2.6) Total Bilirubin 0.3mg/dL (0.0-1.2) Aspartate Amino Transf (AST/SGOT) 16U/L (0-50) Alanine Aminotransferase (ALT/SGPT) 9U/L (0-44) Alkaline Phosphatase 187U/L (25-160) Troponin T 0.086ug/L (0.0-0.011) Total Protein 8.3g/dL (6.4-8.4) Albumin 4.0g/dL (3.4-5.0) ECG Interpretation ECG Interpretation: Sinus rhythm Rate 74 bpm Prolonged [place] interval Incomplete LBBB Inferior infarct Time: 14:36 Interpreted by: ED physician Normal ECG Interpretation: No change from prior ECGs X-Ray Chest Interpretation Chest Xray Interpretation: IMPRESSION: No acute disease Dictated by: Sam Malik M.D. on 04/23/2017 at 14:09 Interpretation / Wet Read by: Interpret - Radiologist CT Head Interpretation IMPRESSION: No acute intracranial abnormality Dictated by: Sam Malik M.D. on 04/23/2017 at 13:59 Study: Head CT no contrast Interpretation / Wet Read by: Interpret - Radiologist CT Chest Interpretation IMPRESSION: 1. No CT evidence of acute pulmonary embolism. 2. Emphysema. 3. Small bilateral pleural effusions. 4. Further chronic findings as described above. Dictated by: Sidney Phillips M.D. on 04/23/2017 at 15:57 Study type: CT pulm angiogram Interpretation / Wet Read by: Interpret - Radiologist Re-Eval/Medical Decision Med Decision/Clinical Course Syncope at dialysis of unclear etiology. Labs are stable, no evidence of ischemia on EKG, CT of the chest and brain are reassuring. Patient is back to his normal baseline and the family feels comfortable taking him home. Return and follow-up precautions given. Re-Evaluation/Progress : Time of Eval: 15:32 )( Re-Eval Neurologic Exam: Pt is back to baseline (Per patient's family, he is at his baseline) Re-Evaluation/Progress Note: Patient is rechecked. Family is informed of his current results and they are comfortable discharging the patient if remaining results are reassuring. All questions about the intended treatment plan are addressed. The patient is agreeable to his disposition at this time. Counseled Regarding: Diagnosis, Lab results, Need for follow-up, When/why to return to ED Discharge & Departure Impression: Primary Impression: Syncope Syncope type: unspecified Qualified Code: R55 - Syncope and collapse Disposition: Home Discharge Condition All VS Reviewed: Yes Condition: Improved Patient Instructions: Syncope (ED) Additional Instructions: Thank you for trusting us with your care this afternoon. Your emergency department evaluation today including examination, lab work, EKG , chest X-ray and CT are reassuring that there is no emergent cause for concern at this time. A clear cause of his syncopal episode was not identified at this time and I recommend that you schedule a follow up appointment with your primary care physician in the next week for a recheck. Please return to the emergency department for any new or worsening conditions including any repeat syncopal episodes, headache, nausea, vomiting, fever, chills, shortness of breath, chest pain, abdominal pain, weakness, numbness or any other concerning symptoms. Referrals: Jose L Clark MD (PCP) Scribe Attestation Portions of this note were transcribed by Aria Reed. I, Dr. Evelia Mcallister, personally performed the history, physical exam and medical decision-making; I reviewed and confirmed the accuracy of the information in the transcribed note. Signed by: Aria Reed, 04/23/17. copies to: Jose L Clark MD, Timothy S DO Apr 23, 2017 14:09 ARIA REED Apr 23, 2017 14:17
[2017-04-23 14:42] LABS: BASOPHILS % (AUTO) 0.6 % (0-3); EOSINOPHILS % (AUTO) 5.8 % (0-5); Mean Corpuscular Hemoglobin 27.6 pg (27.0-35.0); Mean Corpuscular Volume 84.6 fL (81-100); NEUTROPHILS % (AUTO) 54.9 % (40-74); Platelet Count 260 bil/L (150-400)
[2017-04-23 15:00] VITALS: BP 169/58; PULSE 75; RESP 28; O2SAT 100
[2017-04-23 15:03] LABS: D-Dimer 1.99 mg/L FEU (<0.50); INR 0.97 ratio
--- NOTE | 2017-04-23 15:03 | DRSVH ---
PROCEDURE: CT BRAIN WITHOUT CONTRAST ([id number]) INDICATIONS: syncope, dizziness TECHNIQUE: Noncontrast 4.5 mm thick angled axial sections acquired from the foramen magnum to the vertex, with c oronal reformats. COMPARISON: [facility], CT, CT BRAIN WO CON, 02/09/2016, 13:31. FINDINGS: Image quality: Excellent. CSF spaces: Basal cisterns are patent. No extra-axial fluid collections. The ventricles are symmet jovita in size and shape. Brain: No intracranial bleeds or masses. There is cerebral volume loss for age, with resultant vent ricular and sulcal prominence. There are periventricular and deep white matter chronic small vessel ischemic changes. There is intracranial internal carotid artery atherosclerosis. Skull and face: Calvarium and visualized facial bones appear intact, without suspicious lesions. Sinuses: Visualized sinuses and mastoids are clear. IMPRESSION: No acute intracranial abnormality Dictated by: Sam Malik M.D. on 04/23/2017 at 13:59 Approved by: Sam Malik M.D. on 04/23/2017 at 14:01
--- NOTE | 2017-04-23 15:12 | DRSVH ---
PROCEDURE: X-RAY CHEST ONE VIEW, PORTABLE ([id number]) INDICATIONS: syncope, tachypnea TECHNIQUE: One view of the chest was acquired. COMPARISON: [facility], CR, XR CHEST 2VW, 01/11/2017, 18:07. FINDINGS: Surgical changes and devices: None. Lungs and pleura: No pleural effusions or pneumothorax. Lungs are clear. Mediastinum: Mediastinal contours appear normal. Heart size is normal. Bones and chest wall: No suspicious bony lesions. Overlying soft tissues appear unremarkable. IMPRESSION: No acute disease Dictated by: Sam Malik M.D. on 04/23/2017 at 14:09 Approved by: Sam Malik M.D. on 04/23/2017 at 14:10
[2017-04-23 15:20] LABS: Magnesium 1.9 mg/dL (1.6-2.6)
[2017-04-23 15:24] LABS: TROPONIN T 0.086 ug/L (0.0-0.011)
--- NOTE | 2017-04-23 16:06 | DRSVH ---
PROCEDURE: CT ANGIO CHEST PULMONARY EMBOLISM ([id number]) INDICATIONS: syncope elevated ddimer TECHNIQUE: After the administration of intravenous contrast, 2 mm thick sections acquired from the pulmonary api hunter to the posterior costophrenic angles. 3-dimensional maximum intensity projection (MIP) coronal a nd sagittal reformats were then acquired through the thorax. For radiation dose reduction, the follo wing was used: automated exposure control, adjustment of mA and/or kV according to patient size. COMPARISON: [facility], CT, CT BRAIN WO CON, 04/23/2017, 14:32. FINDINGS: Image quality: Excellent. Pulmonary arteries: Pulmonary arteries are normal in size, and demonstrate no intraluminal filling d efects to suggest central pulmonary embolism. The aorta is incidentally opacified luminal evaluation . Lungs and pleura: Lungs are clear. Small bilateral pleural effusions. No pneumothorax. Central and peripheral airways are patent. Emphysema. Mediastinum: Prominent but not pathologically enlarged mediastinal lymph nodes. Heart size is at the upper limits of normal. Grossly normal esophagus. Bones and chest wall: No suspicious bony lesions. Ribs and thoracic spine appear intact throughout. Thyroid gland is present. No axillary or supraclavicular adenopathy. Abdomen: Visualized upper abdominal solid organs appear normal in the early arterial phase of enhanc ement. Cholecystectomy. Bilateral renal atrophy. Heavily calcified renal arteries with likely hemody namically significant stenoses in the right renal artery. IMPRESSION: 1. No CT evidence of acute pulmonary embolism. 2. Emphysema. 3. Small bilateral pleural effusions. 4. Further chronic findings as described above. Dictated by: Sidney Phillips M.D. on 04/23/2017 at 15:57 Approved by: Sidney Phillips M.D. on 04/23/2017 at 16:04
[2017-04-23 16:09] VITALS: BP 183/61; PULSE 76; RESP 24; O2SAT 100
[2017-04-23 16:33] VITALS: BP 183/61; PULSE 76; RESP 24; O2SAT 100
== END 2017-04-23 16:35 | disposition home or self-care (01) ==
LOC: EDBD 14:00 → EDUNIT# 14:00 → SED 14:00
DX: R55 Syncope and collapse (principal); E11.22 Type 2 diabetes mellitus with diabetic chronic kidney disease; N18.5 Chronic kidney disease, stage 5; E03.9 Hypothyroidism, unspecified; Z99.2 Dependence on renal dialysis; Z79.4 Long term (current) use of insulin; Z86.73 Personal history of transient ischemic attack (TIA), and cerebral infarction without residual deficits; Z95.5 Presence of coronary angioplasty implant and graft; Z87.891 Personal history of nicotine dependence; Z88.8 Allergy status to other drugs, medicaments and biological substances
CPT/HCPCS: 36415; 70450; 71010; 71275; 80053; 82948; 83735; 84484; 85025; 85378; 85610; 93005; 99285; Q9967